=== PATIENT | female | born 1980 | race Caucasian/White ===

== ENCOUNTER 2023-09-23 22:21 | Emergency (ER) | payer OTHER, SELFPAY ==
[2023-09-23 22:29] VITALS: BP 158/98; PULSE 88; RESP 18; TEMP 37.5; O2SAT 98; BMI 41.9
--- NOTE | 2023-09-23 22:55 | PC.NURSE ---
No redness, bruising, swelling and skin at elbow intact, strong radial pulse to left wrist, Ice to site of complaint.
--- NOTE | 2023-09-23 22:57 | ED_ITS ---
HPI - Extremity Injury (Lower) General Chief Complaint: Extremity Injury, Lower Stated Complaint: FALL Injury Time Seen by Provider: 09/23/23 22:54 Source: patient Mode of arrival: walk-in History of Present Illness HPI Narrative: slipped on plastic at work and fell onto her right knee. Also mild injury to the left elbow. States only mild pain at the elbow and demonstrates use of the elbow without discomfort. Denies other injury. Related Data Allergies Allergy/AdvReac Type Severity Reaction Status Date / Time No Known Drug Allergies Allergy Verified 09/23/23 22:34 Review of Systems ROS Status of ROS 10 or more systems reviewed and unremark able except as noted in history and below Exam Constitutional Vital Signs, click to edit/add: Last Vital Signs Temp 99.5 F 09/23/23 22:29 Pulse 88 09/23/23 22:29 Resp 18 09/23/23 22:29 BP 158/98 H 09/23/23 22:29 Pulse Ox 98 09/23/23 22:29 O2 Del Method Room Air 09/23/23 22:29 Common normals: no apparent distress, average body habitus, oriented x3, no limitations, healthy appearing and alert HENIA Common normals: normocephalic and head/scalp atraumatic Respiratory Common normals: normal respiratory effort, no retractions and no use of accesso ry muscles GI Common normals: Normal to inspection, nondistended, normoactive bowel sounds present, soft to palpation and non-tender Extremity Other: mild tenderness right patella. not able to fully extend left elbow from old injury but otherwise able to use LUE without difficulty Neuro Common normals: oriented x3, CN's II-XII intact bilaterally, moves all extremities and no focal motor deficits Psych Appearance: grossly normal Course Vital Signs Vital signs: Vital Signs Temperature 99.5 F 09/23/23 22:29 Pulse Rate 88 09/23/23 22:29 Respiratory Rate 18 09/23/23 22:29 Blood Pressure 158/98 H 09/23/23 22:29 Pulse Oximetry 98 09/23/23 22:29 Oxygen Delivery Method Room Air 09/23/23 22:29 Temperature 99.5 F 09/23/23 22:29 Pulse Rate 88 09/23/23 22:29 Respiratory Rate 18 09/23/23 22:29 Blood Pressure 158/98 H 09/23/23 22:29 Pulse Oximetry 98 09/23/23 22:29 Oxygen Delivery Method Room Air 09/23/23 22:29 MDM - Extremity Injury (Lower) MDM Narrative Medical decision making narrative: patient presents after slip and fall injury at work. landed on her right knee. mild injury left elbow. xray right knee neg for fracture. Exam with evidence of mild knee contusion. Patient states she is not scheduled to return to work until 09/27/23. I suspect by then she should be able to return to work without restrictions. Discharged home with working diagnosis of right knee contusion Imaging Data Chest x-ray: Radiologist's impression: ITS Impressions Knee X-Ray 09/23/23 22:57 IMPRESSION: Negative. Electronically authenticated by: PIEDAD CALVO Date: 09/23/2023 23:47 Discharge Plan Discharge Chief Complaint: Extremity Injury, Lower Clinical Impression: Contusion of knee, right Patient Disposition: Home, Self-Care Instructions: Contusion in Adults (ED) Stand Alone Forms: Portal Instructions Referrals: Physician,Non-Staff, MD [Primary Care Provider] - 1 week
--- NOTE | 2023-09-23 22:57 | XR_ITS ---
The [address] [address] Patient Name: JAG SAUCEDO MRN: [id number] date: 1980 Sex: F Assigned Patient Location: ER Current Patient Location: ER Accession/Order Number: [id number] Exam Date: 09/23/2023 23:10 Report Date: 09/23/2023 23:47 At the request of: EDIN MESSINA Procedure: XR knee RT 3V EXAM: XR knee RT 3V HISTORY: The patient is a 43-year-old female, injury COMPARISON: None. FINDINGS: The right knee is radiographically negative with no evidence of fracture, dislocation, joint space narrowing, osteophytes, or other osseous or articular abnormalities. XR/XR knee RT 3V IMPRESSION: Negative. Electronically authenticated by: PIEDAD CALVO Date: 09/23/2023 23:47
--- NOTE | 2023-09-23 22:57 | PC.NURSE ---
No redness or swelling and skin intact to right knee, small bruise starting at site, pt able to bend injured knee and ice placed to right knee.
--- NOTE | 2023-09-24 00:52 | XR_ITS ---
The [address] [address] Patient Name: JAG SAUCEDO MRN: [id number] date: 1980 Sex: F Assigned Patient Location: ER Current Patient Location: ER Accession/Order Number: [id number] Exam Date: 09/24/2023 00:58 Report Date: 09/24/2023 02:00 At the request of: EDIN MESSINA Procedure: XR elbow LT min 3V Examination:XR elbow LT min 3V INDICATION:injury COMPARISON:None. TECHNIQUE:3 left elbow views are submitted. FINDINGS:There is some image degradation on this examination since patient is unable to fully extend her arm due to trauma and clinical status. There is a bony fragment with sharp edges on the lateral projection located along the distal posterior humerus which may represent an acute fracture arising from the olecranon there are other smoothly marginated osseous fragments located adjacent to the medial humeral condyle which may be sequela to old trauma given the smooth edges. A definitive radial head fracture cannot be appreciated. There is a large joint effusion on the lateral projection. XR/XR elbow LT min 3V IMPRESSION: There may be an acute fracture arising from the olecranon based on the lateral projection. Further evaluation with CT scan would be of benefit. Electronically authenticated by: PINA NELSON Date: 09/24/2023 02:00
[2023-09-24 01:48] VITALS: BP 162/94; PULSE 90; RESP 16; O2SAT 99
== END 2023-09-24 05:36 | disposition home or self-care (01) ==
PROVIDERS: Emergency Provider Internal Medicine
DX: S80.01XA Contusion of right knee, initial encounter (principal); M25.522 Pain in left elbow; W01.10XA Fall on same level from slipping, tripping and stumbling with subsequent striking against unspecified object, initial encounter
CPT/HCPCS: 73080; 73562; 99284

== ENCOUNTER 2023-09-28 10:31 | Outpatient (OUT) | payer SELFPAY ==
--- OUTSIDE RECORDS SUMMARY | 2023-09-28 10:37 | XMS_ITS | CCD ---
Author Name Unknown Address [address] [place] [address] [address] [place] [address] Organization [facility] Care Team Providers Care Drywall Finisher Name Role Phone TRI, DR HANK Horner Admitting Unavailable TRI, DR HANK Horner Attending Unavailable DR HANK BARTLETT Consulting Unavailable Problems Problem Classification Problem Date Documented Da te Episodic/Chronic E Codes: Fall (1 source) Fall (on) (from) unspecified stairs and steps, initial encounter; Translations: [FALL ON FROM UNS STAIRS STEPS INIT] Onset: 04-21-2022 Episodic Other injuries and conditions due to external causes (3 sources) Unspecified injury of right shoulder and upper arm, initial encounter; Translations: [UNS INJ RT SHOULDER UP ARM INITIAL] Onset: 04-20-2022 Episodic Sprains and strains (1 source) Strain of unspecified muscle, fascia and tendon at shoulder and upper arm level, right arm, initial encounter; Translations: [STRN UNS MSC F TND SHLDR UA RA INIT] Onset: 04-21-2022 Episodic Encounters Encounter Date Encounter Type Care Provider Facility Start: 04-20-2022 End: 04-20-[address] HANK BARTLETT Facility:[facility] Payers Date Payer Category Payer Unknown [id number] 1958 Self-pay [id number] Summary Purpose Family History No Family History Records Found Advance Directives No Advanced Directives Records Found Additional Source Comments INFORMATION SOURCE (unrecogn ized section and content) DATE CREATED AUTHOR 04/21/2022 [facility] FOR RECORDS PERTAINING TO PATIENTS WHO ARE OR HAVE BEEN ENROLLED IN A CHEMICAL DEPENDENCY/SUBSTANCEABUSE PROGRAM, SOME INFORMATION MAY BE OMITTED. This clinical summary was aggregated from multiple sources. Caution should be exercised in using it in the provision of clinical care. This summary normalizes information from multiple sources, and as a consequence, information in this document may materially change the coding, format and clinical context of patient data. In addition, data may be omitted in some cases. CLINICAL DECISIONS SHOULD BE BASED ON THE PRIMARY CLINICAL RECORDS. [facility]. provides no warranty or guarantee of the accuracy or completeness of information in this document.
--- NOTE | 2023-09-28 10:45 | CT_ITS ---
The [address] [address] Patient Name: JAG SAUCEDO MRN: [id number] date: 1980 Sex: F Assigned Patient Location: [facility] Current Patient Location: [facility] Accession/Order Number: [id number] Exam Date: 09/28/2023 10:50 Report Date: 09/28/2023 11:18 At the request of: JOSH COLVIN Procedure: CT elbow LT wo con EXAMINATION: CT elbow LT wo con HISTORY: Abnormal plain x-ray COMPARISON: 09/24/2023 elbow x-ray TECHNIQUE: Multi-planar CT images were created without IV contrast. Dose reduction techniques were achieved by using automated exposure control and/or adjustment of mA and/or kV according to patient size and/or use of iterative reconstruction technique. FINDINGS: BONES: Lucency is identified through the medial anterior coronoid process best seen on axial image 20 and 21 with the fracture fragment measuring 10.7 x 7.0 mm on axial image 21 and 12 mm on sagittal image #18. The fracture extends to the articular surface with no distraction or angulation. No additional fracture. No dislocation. Moderate degenerative changes with marginal osteophyte formation. SOFT TISSUES: Mild posterior soft tissue swelling EFFUSION: None visible. OTHER: Negative. CT/CT elbow LT wo con IMPRESSION: Subacute nondisplaced nonangulated 10.7 x 7.0 x 12 mm fracture along the anterior medial coronoid process of the proximal ulna. No significant bony bridging and bone formation is observed Electronically authenticated by: RUBÉN FERREIRA Date: 09/28/2023 11:18
== END 2023-09-28 10:32 | disposition home or self-care (01) ==
LOC: RAD 10:32
PROVIDERS: Visit Provider Nurse Practitioner Family
DX: M25.522 Pain in left elbow (principal); S52.045A Nondisplaced fracture of coronoid process of left ulna, initial encounter for closed fracture
CPT/HCPCS: 73200

== ENCOUNTER 2025-04-07 17:10 | Emergency (ER) | payer OTHER, SELFPAY ==
[2025-04-07 17:14] VITALS: BP 137/118; PULSE 115; TEMP 36.7; O2SAT 99; BMI 44.3
--- NOTE | 2025-04-07 17:20 | CT_ITS ---
The [address] [address] Patient Name: JAG SAUCEDO MRN: [id number] date: 1980 Sex: F Assigned Patient Location: ER Current Patient Location: [facility] Accession/Order Number: [id number] Exam Date: 04/07/2025 18:07 Report Date: 04/07/2025 18:10 At the request of: BHUMIKA BROWNING Procedure: CT abdomen pelvis w con CT ABDOMEN AND PELVIS WITH INTRAVENOUS CONTRAST: CLINICAL HISTORY: ruq pain COMPARISON: None TECHNIQUE: Spiral images were obtained through the abdomen and pelvis following the administration of intravenous contrast. This CT exam was performed using one or more following dose reduction techniques: Automated exposure control, adjustment of the mA and/or kV according to patient size, or use of iterative reconstruction technique. FINDINGS: Lung Bases: [Mild lung scarring.] Organs:CBD stent is in place. Diffuse intrahepatic bile duct dilatation. No enhancing liver lesion is present. Gallbladder spleen and adrenal glands appear unremarkable. Pancreas enhances homogeneously without measurable mass. No enhancing renal mass or hydronephrosis. Abdominal aorta appears normal in caliber.[ GI: Stomach is grossly unremarkable. Small bowel appears nondilated. Appendix is normal. No acute colonic abnormality.[ Pelvis:[Uterus and urinary bladder appears unremarkable. 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 Abd wall/Bones:Abdominal wall demonstrates no acute findings. Osseous structures demonstrate degenerative change[ CT/CT abdomen pelvis w con IMPRESSION: CBD stent is in place. There is mild intrahepatic bile duct dilatation noted. Correlation with LFTs is suggested. No definite acute intra-abdominal process is seen. Impression dictated by: Elie Herrera Jr., D.O. 04/07/2025 6:10 PM Dictation Location: [place] [address] Electronically authenticated by: [id number] Y Date: 04/07/2025 18:10
--- OUTSIDE RECORDS SUMMARY | 2025-04-07 17:23 | XMS_ITS | CCD ---
Author Organization [facility] Care Team Providers Care Meteorological Observer Name Role Phone DR HANK BARTLETT Admitting Unavailable TRI, DR HANK Horner Attending Unavailable TRI, DR HANK Horner Consulting Unavailable No, Pcp Primary Care Provider Unavailabl e NO, PCP Primary Care Unavailable ROGERS REEVES Referring Unavailable ROGERS REEVES Referring Unavailable IGLESIA, PCP Primary Care Unavailable DESEAN RONODN Referring Unavailable DESEAN RONDON Primary Care Unavailable DESEAN RONDON Referring Unavailable DESEAN RONDON Primary Care Unavailable Alcon RUG RENOVATOR-HAY CHOPPERDesean Primary Care Provid er Alcon RUG RENOVATOR-Desean HENSON Primary Care Provid er DESEAN RONDON Attending Unavailable DESEAN RONDON Referring Unavailable DESEAN RONDON Primary Care Unavailable AMY WALTER Attending Unavailable DESEAN RONDON Referring Unavailable DESEAN RONDON Primary Care Unavailable Medications Current Medications Medication Drug Class(es) Dates Sig (Normalized) Sig (Original) 250 ml glucose 50 mg/ml / sodium chloride 4.5 mg/ml injection (1 source) Start: 01-13-2013 Dextrose-Sodium Chloride (DEXTROSE 5 % AND 0.45 % NACL) 5-0.45 % infusion Infuse 75 mLs intravenously continuous. 1000 mL 0 01/13/2013 Active levothyroxine sodium 0.025 mg oral tablet (6 sources) l-Thyroxine Start: 02-23-2024 End: 08-13-2024 take 1 tablet by mouth in the morning levothyroxine (SYNTHROID, LEVOTHROID) 25 MCG tablet Indications: Acquired hypothyroidism TAKE 1 TABLET BY MOUTH IN THE MORNING 90 tablet 1 08/13/2024 Active lisinopril 10 mg oral tablet (1 source) Angiotensin Converting Enzyme Inhibitor Start: 03-21-2025 take 1 tablet by mouth in the morning lisinopriL (PRINIVIL,ZESTRIL) 10 mg tablet Take 1 tablet (10 mg total) by mouth in the morning. 30 tablet 1 03/21/2025 Active 1 ml morphine sulfate 2 mg/ml injection (1 source) Opioid Agonist Start: 01-13-2013 inject 1 mL intravenously every four hours as needed for pain morphine 2 MG/ML injection Infuse 1 mL intravenously every 4 hours as needed for Pain. 1 mL 0 01/13/2013 Active 2 ml ondansetron 2 mg/ml injection (1 source) Serotonin-3 Receptor Antagonist Start: 01-13-2013 inject 4 mL intravenously every six hours ondansetron (ZOFRAN) 4 MG/2ML injection Infuse 4 mLs intravenously every 6 hours. 15 mL 0 01/13/2013 Active pantoprazole 40 mg injection (1 source) Proton Pump Inhibitor Start: 01-13-2013 inject 40 mg intravenously once daily pantoprazole (PROTONIX) 40 MG injection Infuse 40 mg intravenously daily. 40 mg 0 01/13/2013 Active traZODone hydrochloride 50 mg oral tablet (4 sources) Serotonin Reuptake Inhibitor Start: 07-05-2024 take 1 tablet by mouth once daily traZODone (DESYREL) 50 mg tablet Indications: Insomnia, unspecified type Take 1 tablet (50 mg total) by mouth nightly. 30 tablet 1 07/05/2024 Active Problems Active Problems Problem Classification Problem Date Documented Da te Episodic/Chronic Diabetes mellitus without complication (2 sources) Impaired fasting glycemia; Translations: [Impaired fasting glucose] Onset: 03-21-2025 03-21-2025 Episodic E Codes: Fall (1 source) Fall (on) (from) unspecified stairs and steps, initial encounter; Translations: [FALL ON FROM UNS STAIRS STEPS INIT] Onset: 04-21-2022 Episodic Essential hypertension (2 sources) Essential hypertension; Translations: [Essential (primary) hypertension] Onset: 03-21-2025 03-21-2025 Chronic Other injuries and conditions due to external causes (3 sources) Unspecified injury of right shoulder and upper arm, initial encounter; Translations: [UNS INJ RT SHOULDER UP ARM INITIAL] Onset: 04-20-2022 Episodic Other non-traumatic joint disorders (1 source) Pain in elbow; Translations: [Pain in left elbow] 10-14-2023 Episodic Other non-traumatic joint disorders (3 sources) Pain in left elbow; Translations: [Pain in left elbow] Onset: 10-14-2023 Episodic Other nutritional; endocrine; and metabolic disorders (1 source) Severe obesity; Translations: [Class 3 severe obesity due to excess calories with serious comorbidity and body mass index (BMI) of 45.0 to 49.9 in adult ([facility])] 03-21-2025 Chronic Residual codes; unclassified (2 sources) Insomnia; Translations: [Insomnia, unspecified] 07-05-2024 Episodic Sprains and strains (1 source) Strain of unspecified muscle, fascia and tendon at shoulder and upper arm level, right arm, initial encounter; Translations: [STRN UNS MSC F TND SHLDR UA RA INIT] Onset: 04-21-2022 Episodic Thyroid disorders (7 sources) Hypothyroidism, unspecified; Translations: [Acquired hypothyroidism] Onset: 07-05-2024 02-23-2024 Chronic Unclassified (1 source) well person Onset: 03-21-2025 Past or Other Problems Problem Classification Problem Date Documented Date Episodic/Chronic Abdominal pain (1 source) Abdominal pain; Translations: [Unspecified abdominal pain] Onset: 01-12-2013 Episodic Administrative/social admission (1 source) Referral statuses; Translations: [Persons encountering health services in other specified circumstances] 02-23-2024 Episodic Biliary tract disease (1 source) Common bile duct calculus; Translations: [Calculus of bile duct without cholangitis or cholecystitis without obstruction] Onset: 01-12-2013 Episodic Mood disorders (6 sources) Mood disorders Onset: 02-23-2024 Resolved: 03-21-2025 02-23-2024 Other screening for suspected conditions (not mental disorders or infectious disease) (2 sources) Abnormal liver function; Translations: [Abnormal results of liver function studies] Onset: 01-12-2013 02-14-2024 Episodic Residual codes; unclassified (1 source) Insomnia, unspecified; Translations: [Insomnia, unspecified] Onset: 07-05-2024 Episodic Unclassified (6 sources) Onset: 02-23-2024 Resolved: 03-21-2025 02-23-2024 Results Test Name Value Interpretation Reference Range Facil ity CBC WITH AUTO DIFFERENTIALon 03-21-2025 BASOPHILS ABSOLUTE COUNT (10*3/UL) BY AUTOMATED COUNT 0.1 10*3/uL Normal 0.0-0.2 [facility] Comment on above: Performed By: #### C BCA #### [facility] ([facility]) [address] [place] [address] VIR BASOPHILS RELATIVE PERCENT BY AUTOMATED COUNT 0.8 % Normal [facility] Comment on above: Performed By: #### C BCA #### [facility] ([facility]) [address] [place] [address] VIR CELLAVISION DIFFERENTIAL TYPE AUTOMATED DIFFERENTIAL Normal [facility] Comment on above: Performed By: #### C BCA #### [facility] ([facility]) [address] [place] [address] VIR Eosinophils (Bld) [#/Vol] 0.2 10*3/uL Normal 0.0-0.4 [facility] Comment on above: Performed By: #### C BCA #### [facility] ([facility]) [address] [place] [address] VIR EOSINOPHILS RELATIVE PERCENT BY AUTOMATED COUNT 3.5 % Normal [facility] Comment on above: Performed By: #### C BCA #### [facility] ([facility]) [address] [place] [address] VIR Erythrocyte distribution width (RBC) [Ratio] 15.4 % High 11.5-15 [facility] Comment on above: Performed By: #### C BCA #### [facility] ([facility]) [address] [place] [address] VIR Hematocrit (Bld) [Volume fraction] 45.0 % Normal 35-47 [facility] Comment on above: Performed By: #### C BCA #### [facility] ([facility]) [address] [place] [address] VIR Hemoglobin (Bld) [Mass/Vol] 15.0 g/dL Normal 11.7-15.5 [facility] Comment on above: Performed By: #### C BCA #### [facility] ([facility]) [address] [place] [address] VIR LYMPHOCYTES ABSOLUTE COUNT (10*3/UL) BY AUTOMATED COUNT 1.8 10*3/uL Normal 1.0-3.5 [facility] Comment on above: Performed By: #### C BCA #### [facility] ([facility]) [address] [place] [address] VIR LYMPHOCYTES RELATIVE PERCENT BY AUTOMATED COUNT 25.3 % Normal [facility] Comment on above: Performed By: #### C BCA #### [facility] ([facility]) [address] [place] [address] VIR MCH (RBC) [Entitic mass] 29.1 pg Normal 27-34 [facility] Comment on above: Performed By: #### C BCA #### [facility] ([facility]) [address] [place] [address] VIR MCHC (RBC) [Mass/Vol] 33.4 g/dL Normal 32-36 [facility] Comment on above: Performed By: #### C BCA #### [facility] ([facility]) [address] [place] [address] VIR MCV (RBC) [Entitic vol] 87 fL Normal 80-100 [facility] Comment on above: Performed By: #### C BCA #### [facility] ([facility]) [address] [place] [address] VIR MONOCYTES ABSOLUTE COUNT (10*3/UL) BY AUTOMATED COUNT 0.8 10*3/uL Normal 0.0-0.9 [facility] Comment on above: Performed By: #### C BCA #### [facility] ([facility]) [address] [place] [address] VIR MONOCYTES RELATIVE PERCENT BY AUTOMATED COUNT 10.6 % Normal [facility] Comment on above: Performed By: #### C BCA #### [facility] ([facility]) [address] [place] [address] VIR NEUTROPHILS ABSOLUTE COUNT BY AUTOMATED COUNT 4.2 10*3/uL Normal 1.5-6.6 [facility] Comment on above: Performed By: #### C BCA #### [facility] ([facility]) [address] [place] [address] VIR NEUTROPHILS RELATIVE PERCENT BY AUTOMATED COUNT 59.8 % Normal [facility] Comment on above: Performed By: #### C BCA #### [facility] ([facility]) [address] [place] [address] VIR Platelet mean volume (Bld) [Entitic vol] 8.2 fL Normal 7-12 [facility] Comment on above: Performed By: #### C BCA #### [facility] ([facility]) [address] [place] [address] VIR Platelets (Bld) [#/Vol] 239 10*3/uL Normal 150-450 [facility] Comment on above: Performed By: #### C BCA #### [facility] ([facility]) [address] [place] [address] VIR RBC COUNT 5.16 X10E12/L Normal 3.8-5.2 [facility] Comment on above: Performed By: #### C BCA #### [facility] ([facility]) [address] [place] [address] VIR WBC (Bld) [#/Vol] 7.1 10*3/uL Normal 4-11 [facility] Comment on above: Performed By: #### C BCA #### [facility] ([facility]) [address] [place] [address] VIR COMPREHENSIVE METABOLIC PANE Anshu 03-21-2025 Albumin [Mass/Vol] 4.4 g/dL Normal 3.2-5.3 [facility] Comment on above: Performed By: #### C MP #### [facility] ([facility]) [address] [place] [address] VIR ALP [Catalytic activity/Vol] 88 U/L Normal 39-130 [facility] Comment on above: Performed By: #### C MP #### [facility] ([facility]) [address] [place] [address] VIR ALT [Catalytic activity/Vol] 31 U/L Normal <=31 [facility] Comment on above: Performed By: #### C MP #### [facility] ([facility]) [address] [place] [address] VIR Anion gap [Moles/Vol] 10 mmol/L Normal 5-15 [facility] Comment on above: Performed By: #### C MP #### [facility] ([facility]) [address] [place] [address] VIR AST [Catalytic activity/Vol] 31 U/L Normal <=41 [facility] Comment on above: Performed By: #### C MP #### [facility] ([facility]) [address] [place] [address] VIR Bilirubin [Mass/Vol] 0.5 mg/dL Normal 0.3-1.2 [facility] Comment on above: Performed By: #### C MP #### [facility] ([facility]) [address] [place] [address] VIR Calcium [Mass/Vol] 9.0 mg/dL Normal 8.5-10.5 [facility] Comment on above: Performed By: #### C MP #### [facility] ([facility]) [address] [place] [address] VIR Chloride [Moles/Vol] 106 mmol/L Normal 98-109 [facility] Comment on above: Performed By: #### C MP #### [facility] ([facility]) [address] [place] [address] VIR CO2 [Moles/Vol] 25 mmol/L Normal 22-32 [facility] Comment on above: Performed By: #### C MP #### [facility] ([facility]) [address] [place] [address] VIR Creatinine [Mass/Vol] 0.63 mg/dL Normal 0.40-1.00 [facility] Comment on above: Result Comment: METH OD TRACEABLE TO IDMS STANDARD Performed By: #### C MP #### [facility] ([facility]) [address] [place] [address] VIR EGFR (CKD-EPI) NON-RACE DEPENDENT >^90 Normal >=60 [facility] Comment on above: Result Comment: Repo rted eGFR is based on the CKD-EPI 2020 equation that does not use a race coefficient. Performed By: #### C MP #### [facility] ([facility]) [address] [place] [address] VIR Glucose [Mass/Vol] 92 mg/dL Normal 65-99 [facility] Comment on above: Performed By: #### C MP #### [facility] ([facility]) [address] [place] [address] VIR Potassium [Moles/Vol] 4.1 mmol/L Normal 3.5-5.0 [facility] Comment on above: Performed By: #### C MP #### [facility] ([facility]) [address] [place] [address] VIR Protein [Mass/Vol] 7.4 g/dL Normal 6.0-8.0 [facility] Comment on above: Performed By: #### C MP #### [facility] ([facility]) [address] [place] [address] VIR Sodium [Moles/Vol] 141 mmol/L Normal 134-146 [facility] Comment on above: Performed By: #### C MP #### [facility] ([facility]) [address] [place] [address] VIR Urea nitrogen [Mass/Vol] 11 mg/dL Normal 5-23 [facility] Comment on above: Performed By: #### C MP #### [facility] ([facility]) [address] [place] [address] VIR HEMOGLOBIN A1Con 03-21-2025 Glucose [Mass/Vol] 117 mg/dL Normal [facility] Comment on above: Performed By: #### H A1C #### [facility] ([facility]) [address] [place] [address] VIR HbA1c (Bld) [Mass fraction] 5.7 % High 4.4-5.6 [facility] Comment on above: Result Comment: ADA Guidelines Result HgbA1c Normal : less than 5.7 % Prediabetes : 5.7 % to 6.4 % Diabetes : > 6.4 % Use with caution in patients with abnormal hemoglobin variants as the half-life of red blood cells and in vivo glycation rates are affected. Performed By: #### H A1C #### [facility] ([facility]) [address] [place] [address] VIR LIPID PROFILEon 03-21-2025 Cholesterol [Mass/Vol] 96 mg/dL Low 150-200 [facility] Comment on above: Performed By: #### L IPR #### [facility] ([facility]) [address] [place] [address] VIR Cholesterol in HDL [Mass/Vol] 51 mg/dL Normal >39 [facility] Comment on above: Result Comment: HDL <40 mg/dL - High Risk HDL > or = 40mg/dL- Desirable HDL >60 mg/dL - Negative Risk Performed By: #### L IPR #### [facility] ([facility]) [address] [place] [address] VIR Cholesterol in LDL [Mass/Vol] 31 mg/dL Normal <130 [facility] Comment on above: Result Comment: LDL <100 mg/dL - Desirable LDL >160 mg/dL - High Risk Performed By: #### L IPR #### [facility] ([facility]) [address] [place] [address] VIR CHOLESTEROL:HDL 1.9 Normal 1.0-5.0 [facility] Comment on above: Performed By: #### L IPR #### [facility] ([facility]) [address] [place] [address] VIR Triglyceride [Mass/Vol] 68 mg/dL Normal 27-150 [facility] Comment on above: Performed By: #### L IPR #### [facility] ([facility]) [address] [place] [address] VIR VERY LOW LIPOPROTEIN 14 mg/dL Normal 0-30 [facility] Comment on above: Performed By: #### L IPR #### [facility] ([facility]) [address] [place] [address] VIR THYROID PROFILE INCLUDES TSH FT4on 03-21-2025 Free T4 [Mass/Vol] 0.84 ng/dL Normal 0.61-1.60 [facility] Comment on above: Performed By: #### T HYR #### [facility] ([facility]) [address] [place] [address] VIR TSH 3.75 uIU/mL Normal 0.49-4.67 [facility] Comment on above: Performed By: #### T HYR #### [facility] ([facility]) [address] [place] [address] VIR TSH Qnon 07-05-2024 TSH 2.47 uIU/mL Normal 0.49-4.67 [facility] Comment on above: Performed By: #### 3 016-3 #### [facility] ([id number]) [address] [place] [address] CBC AND AUTO DIFFon 02-14-20 24 ABSOLUTE BASOPHIL 0.0 X10E9/L Normal 0.0-0.2 [facility] Comment on above: Performed By: #### C BCA, HA1C, CMP, 34795-6, 3015-3 #### [facility] ([id number]) [address] [place] [address] ABSOLUTE NEUTROPHIL 7.0 X10E9/L High 1.5-6.6 [facility] Comment on above: Performed By: #### C BCA, HA1C, CMP, 87737-0, 3015-3 #### [facility] ([id number]) [address] [place] [address] Basophils/100 WBC (Bld) 0.4 % Normal [facility] Comment on above: Performed By: #### C BCA, HA1C, CMP, , 3015- #### [facility] ([id number]) [address] [place] [address] Eosinophils (Bld) [#/Vol] 0.3 10*3/uL Normal 0.0-0.4 [facility] Comment on above: Performed By: #### C BCA, HA1C, CMP, , 3015- #### [facility] ([id number]) [address] [place] [address] Eosinophils/100 WBC (Bld) 2.8 % Normal [facility] Comment on above: Performed By: #### C BCA, HA1C, CMP, , 3015- #### [facility] ([id number]) [address] [place] [address] Erythrocyte distribution width (RBC) [Ratio] 15.1 % High 11.5-15.0 [facility] Comment on above: Performed By: #### C BCA, HA1C, CMP, , 3015- #### [facility] ([id number]) [address] [place] [address] Hematocrit (Bld) [Volume fraction] 44.8 % Normal 35-[address] [facility] Comment on above: Performed By: #### C BCA, HA1C, CMP, 76746-3, 3015- #### [facility] ([id number]) [address] [place] [address] Hemoglobin (Bld) [Mass/Vol] 15.3 g/dL Normal 11.7-15.5 [facility] Comment on above: Performed By: #### C BCA, HA1C, CMP, 85156-0, 3015-3 #### [facility] ([id number]) [address] [place] [address] Lymphocytes (Bld) [#/Vol] 1.7 10*3/uL Normal 1.0-3.5 [facility] Comment on above: Performed By: #### C BCA, HA1C, CMP, 34313-6, 3015- #### [facility] ([id number]) [address] [place] [address] Lymphocytes/100 WBC (Bld) 17.2 % Normal [facility] Comment on above: Performed By: #### C BCA, HA1C, CMP, 21107-8, 3015- #### [facility] ([id number]) [address] [place] [address] MCH (RBC) [Entitic mass] 29.5 pg Normal 27-34 [facility] Comment on above: Performed By: #### C BCA, HA1C, CMP, 52137-1, 3015- #### [facility] ([id number]) [address] [place] [address] MCHC (RBC) [Mass/Vol] 34.1 g/dL Normal 32-36 [facility] Comment on above: Performed By: #### C BCA, HA1C, CMP, 38578-9, 3015- #### [facility] ([id number]) [address] [place] [address] MCV (RBC) [Entitic vol] 87 fL Normal 80-100 [facility] Comment on above: Performed By: #### C BCA, HA1C, CMP, 74324-0, 3015- #### [facility] ([id number]) [address] [place] [address] Monocytes (Bld) [#/Vol] 0.7 10*3/uL Normal 0-0.9 [facility] Comment on above: Performed By: #### C BCA, HA1C, CMP, 57658-3, 3015- #### [facility] ([id number]) [address] [place] [address] Monocytes/100 WBC (Bld) 7.0 % Normal [facility] Comment on above: Performed By: #### C BCA, HA1C, CMP, 17704-3, 3015-11 #### [facility] ([id number]) [address] [place] [address] Neutrophils/100 WBC (Bld) 72.6 % Normal [facility] Comment on above: Performed By: #### C BCA, HA1C, CMP, 45674-8, 3015-11 #### [facility] ([id number]) [address] [place] [address] Platelet mean volume (Bld) [Entitic vol] 8.6 fL Normal 7-12 [facility] Comment on above: Performed By: #### C BCA, HA1C, CMP, 21197-1, 3015- #### [facility] ([id number]) [address] [place] [address] Platelets (Bld) [#/Vol] 268 10*3/uL Normal 150-450 [facility] Comment on above: Performed By: #### C BCA, HA1C, CMP, 04357-7, 3015- #### [facility] ([id number]) [address] [place] [address] RBC COUNT 5.18 X10E12/L Normal 3.80-5.20 [facility] Comment on above: Performed By: #### C BCA, HA1C, CMP, 24633-7, 3016-3 #### [facility] ([id number]) [address] [place] [address] WBC (Bld) [#/Vol] 9.6 10*3/uL Normal 4.0-11.0 [facility] Comment on above: Performed By: #### C BCA, HA1C, CMP, 38231-6, 3016-3 #### [facility] ([id number]) [address] [place] [address] CBC auto differentialon -0 Basophils (Bld) [#/Vol] 0.0 10*3/uL [facility] Basophils/100 WBC (Bld) 0.4 % [facility] Eosinophils (Bld) [#/Vol] 0.3 10*3/uL [facility] Eosinophils/100 WBC (Bld) 2.8 % [facility] Erythrocyte distribution width (RBC) [Ratio] 15.1 % High 11.5 - 15.0 % [facility] Hematocrit (Bld) [Volume fraction] 44.8 % 35 - 47 % [facility] Hemoglobin (Bld) [Mass/Vol] 15.3 g/dL 11.7 - 15.5 g/dL [facility] Interpretation and review of laboratory results Abnormal [facility] Lymphocytes (Bld) [#/Vol] 1.7 10*3/uL [facility] Lymphocytes/100 WBC (Bld) 17.2 % [facility] MCH (RBC) [Entitic mass] 29.5 pg 27 - 34 pg [facility] MCHC (RBC) [Mass/Vol] 34.1 g/dL 32 - 36 g/dL [facility] [facility] MCV (RBC) [Entitic vol] 87 fL 80 - 100 fL [facility] Monocytes (Bld) [#/Vol] 0.7 10*3/uL [facility] Monocytes/100 WBC (Bld) 7.0 % [facility] Neutrophils (Bld) [#/Vol] 7.0 10*3/uL High [facility] Neutrophils/100 WBC (Bld) 72.6 % [facility] Platelet mean volume (Bld) [Entitic vol] 8.6 fL 7 - 12 fL [facility] Platelets (Bld) [#/Vol] 268 10*3/uL [facility] RBC (Bld) [#/Vol] 5.18 10*6/uL [facility] WBC corrected for nucl RBC Auto (Bld) [#/Vol] 9.6 [facility] COMPREHENSIVE METABOLIC PANE Anshu 02-14-2024 Albumin [Mass/Vol] 4.3 g/dL Normal 3.2-5.3 [facility] Comment on above: Performed By: #### C BCA, HA1C, CMP, 16243-0, 6-3 #### [facility] ([id number]) [address], [address] [place] [address] ALP [Catalytic activity/Vol] 114 U/L Normal 39-130 [facility] Comment on above: Performed By: #### C BCA, HA1C, CMP, 35989-9, 6-3 #### [facility] ([id number]) [address], [address] [place] [address] ALT [Catalytic activity/Vol] 33 U/L High 0-31 [facility] Comment on above: Performed By: #### C BCA, HA1C, CMP, 07295-1, 3015-3 #### [facility] ([id number]) [address], [address] [place] [address] Anion gap [Moles/Vol] 10 mmol/L Normal 5-15 [facility] Comment on above: Performed By: #### C BCA, HA1C, CMP, 63486-6, 6-3 #### [facility] ([id number]) [address], [address] [place] [address] AST [Catalytic activity/Vol] 28 U/L Normal 0-41 [facility] Comment on above: Performed By: #### C BCA, HA1C, CMP, 85906-5, 3015-3 #### [facility] ([id number]) [address], [address] [place] [address] Bilirubin [Mass/Vol] 0.8 mg/dL Normal 0.3-1.2 [facility] Comment on above: Performed By: #### C BCA, HA1C, CMP, 39456-4, 3015-3 #### [facility] ([id number]) [address], [address] [place] [address] Calcium [Mass/Vol] 9.2 mg/dL Normal 8.5-10.5 [facility] Comment on above: Performed By: #### C BCA, HA1C, CMP, 15732-4, 3015-3 #### [facility] ([id number]) [address], [address] [place] [address] Chloride [Moles/Vol] 102 mmol/L Normal 98-109 [facility] Comment on above: Performed By: #### C BCA, HA1C, CMP, 62634-4, 3015-3 #### [facility] ([id number]) [address], [address] [place] [address] CO2 [Moles/Vol] 28 mmol/L Normal 22-32 [facility] Comment on above: Performed By: #### C BCA, HA1C, CMP, 93082-4, 3015-3 #### [facility] ([id number]) [address], [address] [place] [address] Creatinine [Mass/Vol] 0.59 mg/dL Normal 0.40-1.00 [facility] Comment on above: Result Comment: METH OD TRACEABLE TO IDMS STANDARD Performed By: #### C BCA, HA1C, CMP, 08092-0, 3015-3 #### [facility] ([id number]) [address] [address] [place] [address] eGFR (CKD-EPI) NON-RACE DEPENDENT >90 Normal >59 [facility] Comment on above: Result Comment: Reported eGFR is based on the CKD-EPI 2020 equation that does not use a race coefficient. Performed By: #### C BCA, HA1C, CMP, 74605-5, 3015-3 #### [facility] ([id number]) [address], [address] [place] [address] Glucose [Mass/Vol] 109 mg/dL High 65-99 [facility] Comment on above: Performed By: #### C BCA, HA1C, CMP, 94180-5, 3015-3 #### [facility] ([id number]) [address], [address] [place] [address] Potassium [Moles/Vol] 3.6 mmol/L Normal 3.5-5.0 [facility] Comment on above: Performed By: #### C BCA, HA1C, CMP, 80079-3, 3015- #### [facility] ([id number]) [address] [address] [place] [address] Protein [Mass/Vol] 7.9 g/dL Normal 6.0-8.0 [facility] Comment on above: Performed By: #### C BCA, HA1C, CMP, 18665-4, 3015- #### [facility] ([id number]) [address] [address] [place] [address] Sodium [Moles/Vol] 140 mmol/L Normal 134-146 [facility] Comment on above: Performed By: #### C BCA, HA1C, CMP, 01405-6, 6-3 #### [facility] ([id number]) [address], [address] [place] [address] Urea nitrogen [Mass/Vol] 8 mg/dL Normal 5-23 [facility] Comment on above: Performed By: #### C BCA, HA1C, CMP, 18616-6, 3016-3 #### [facility] ([id number]) [address], [address] [place] [address] Comprehensive metabolic pane anshu 02-14-2024 Albumin [Mass/Vol] 4.3 g/dL 3.2 - 5.3 g/dL [facility] ALP [Catalytic activity/Vol] 114 U/L 39 - 130 U/L [facility] ALT No additional P-5'-P [Catalytic activity/Vol] 33 U/L High 0 - 31 U/L [facility] Anion gap [Moles/Vol] 10 mmol/L 5 - 15 mmol/L [facility] AST [Catalytic activity/Vol] 28 U/L 0 - 41 U/L [facility] Bilirubin [Mass/Vol] 0.8 mg/dL 0.3 - 1.2 mg/dL [facility] Calcium [Mass/Vol] 9.2 mg/dL 8.5 - 10. 5 mg/dL [facility] Chloride [Moles/Vol] 102 mmol/L 98 - 109 mmol/L [facility] CO2 [Moles/Vol] 28 mmol/L 22 - 32 mmol/L [facility] Creatinine [Mass/Vol] 0.59 mg/dL 0.40 - 1.00 mg/dL [facility] Comment on above: METHOD TRACEABLE TO IDND STANDARD eGFR (CKD-EPI)non-race dependent - PINF [facility] Comment on above: Reported eGFR is based on the CKD-EPI 2020 equation that does not use a race coefficient. Glucose [Mass/Vol] 109 mg/dL High 65 - 99 mg/dL [facility] Interpretation and review of laboratory results Abnormal [facility] Potassium [Moles/Vol] 3.6 mmol/L 3.5 - 5.0 mmol/L [facility] Protein [Mass/Vol] 7.9 g/dL 6.0 - 8.0 g/dL [facility] Sodium [Moles/Vol] 140 mmol/L 134 - 146 mmol/L [facility] Urea nitrogen [Mass/Vol] 8 mg/dL 5 - 23 mg/dL [facility] HGB A1C (GLYCO-HGB)on 2023 Glucose [Mass/Vol] 111 mg/dL Normal [facility] Comment on above: Performed By: #### C MARNI ROSAS, KATELYN, 16239-6, 3016-3 #### [facility] ([id number]) [address] [place] [address], [address] [place] [address] HbA1c (Bld) [Mass fraction] 5.5 % Normal 4.4-5.6 [facility] Comment on above: Result Comment: NOTE ADA Guidelines Result HgbA1c Normal : less than 5.7 % Prediabetes : 5.7 % to 6.4 % Diabetes : > 6.4 % Use with caution in patients with abnormal hemoglobin variants as the half-life of red blood cells and in vivo glycation rates are affected. Performed By: #### C MARNI ROSAS, KATELYN, 60829-4, 3016-3 #### [facility] ([id number]) [address] [place] [address], [address] [place] [address] Hemoglobin A1con 02-14-2024 Average glucose Estimated from glycated hemoglobin (Bld) [Mass/Vol] 111 mg/dL [facility] HbA1c (Bld) [Mass fraction] 5.5 % 4.4 - 5.6 % [facility] Comment on above: NOTE ADA Guidelines Result HgbA1c Normal : less than 5.7 % Prediabetes : 5.7 % to 6.4 % Diabetes : > 6.4 % Use with caution in patients with abnormal hemoglobin variants as the half-life of red blood cells and in vivo glycation rates are affected. [facility] Lipid 1996 panelon 4 Cholesterol [Mass/Vol] 111 mg/dL Low 150-200 [facility] Comment on above: Performed By: #### C RALPH, HAJovanni, CMP, 18729-1, 3015- #### [facility] ([id number]) [address], [address] [place] [address] Cholesterol in HDL [Mass/Vol] 62 mg/dL Normal >39 [facility] Comment on above: Result Comment: HDL <40 mg/dL - High Risk HDL > or = 40mg/dL- Desirable HDL >60 mg/dL - Negative Risk Performed By: #### C RALPH, HA1C, CMP, 87846-6, 3015-11 #### [facility] ([id number]) [address], [address] [place] [address] Cholesterol in LDL [Mass/Vol] 39 mg/dL Normal <130 [facility] Comment on above: Result Comment: LDL <100 mg/dL - Desirable LDL >160 mg/dL - High Risk Performed By: #### C RALPH, HA1C, CMP, 36148-9, 3015- #### [facility] ([id number]) [address], [address] [place] [address] Cholesterol in VLDL [Mass/Vol] 10 mg/dL Normal 0-30 [facility] Comment on above: Performed By: #### C RALPH, HA1C, CMP, 27759-2, 3015- #### [facility] ([id number]) [address], [address] [place] [address] CHOLESTEROL:HDL 1.8 Normal 1.0-5.0 [facility] Comment on above: Performed By: #### C BCA, HA1C, CMP, 88252-6, 3016-3 #### [facility] ([id number]) [address], [address] [place] [address] Triglyceride [Mass/Vol] 51 mg/dL Normal 27-150 [facility] Comment on above: Performed By: #### C BCA, HA1C, CMP, 63077-5, 3016-3 #### [facility] ([id number]) [address], [address] [place] [address] TSHon 02-14-2024 TSH Qn 5.04 m[IU]/L High [facility] TSH Qnon 02-14-2024 Interpretation and review of laboratory results Abnormal [facility] TSH 5.04 uIU/mL High 0.49-4.67 [facility] Comment on above: Performed By: #### C BCA, HA1C, CMP, 10654-8, 3016-3 #### [facility] ([id number]) [address], [address] [place] [address] XR ELBOW LEFT (MIN 3 VIEWS)o n 10-14-2023 XR ELBOW LEFT (MIN 3 VIEWS) EXAM: XR ELBOW LEFT (MIN 3 VIEWS) HISTORY: Left elbow pain COMPARISON: None. IMPRESSION: FINDINGS/ IMPRESSION: Evidence of remote medial epicondylitis. There is moderate degeneration. No acute fracture or dislocation. Interpreted by: Zahra Francis DO Signed by: Zahra Francis DO 10/14/23 Final result Normal [facility] XR Elbow - left 3 Viewson FINDINGS/ IMPRESSION: Evidence of remote medial epicondylitis. There is moderate degeneration. No acute fracture or dislocation. [facility] EXAM: XR ELBOW LEFT (MIN 3 VIEWS) HISTORY: Left elbow pain COMPARISON: None. [facility] Zahra Francis DO - 10/14/2023 EXAM: XR ELBOW LEFT (MIN 3 VIEWS) HISTORY: Left elbow pain COMPARISON: None. IMPRESSION: FINDINGS/ IMPRESSION: Evidence of remote medial epicondylitis. There is moderate degeneration. No acute fracture or dislocation. [facility] Radiology Study observation (narrative) [facility] XR Elbow - left 3 ViewsOrder ed By: Zahra Francis on 10-14-2023 [facility] Work Phone: Vital Signs Date Time Vital Sign Value Performing Clinician Facility 03-21-2025 12:37-0400 Body height 157.5 cm Amy Ryan RUG RENOVATOR-[employer] Work Phone: [facility] 03-21-2025 12:37-0400 Body mass index (BMI) [Ratio] 45.38 kg/m2 Amy Ryan RUG RENOVATOR-[employer] Work Phone: [facility] 03-21-2025 12:37-0400 Body temperature 97.81 [degF] Amy Ryan RUG RENOVATOR-[employer] Work Phone: [facility] 03-21-2025 12:37-0400 Body weight 112.58 kg Amy Ryan RUG RENOVATOR-[employer] Work Phone: [facility] 03-21-2025 12:37-0400 Diastolic blood pressure 88 mm[Hg] Amy Ryan RUG RENOVATOR-[employer] Work Phone: [facility] 03-21-2025 12:37-0400 Heart rate 80 /min Amy Ryan RUG RENOVATOR-[employer] Work Phone: [facility] 03-21-2025 12:37-0400 Respiratory rate 18 /min Amykaushal Walter RUG RENOVATOR-[employer] Work Phone: [facility] 03-21-2025 12:37-0400 SaO2% (BldA) [Mass fraction] 97 % Amy Ryan RUG RENOVATOR-[employer] Work Phone: [facility] 03-21-2025 12:37-0400 Systolic blood pressure 138 mm[Hg] Amy Ryan RUG RENOVATOR-[employer] Work Phone: [facility] 07-05-2024 13:23-0400 Body height 157.5 cm Desean Rondon APRN-HAY CHOPPER Work Phone: [facility] 07-05-2024 13:23-0400 Body mass index (BMI) [Ratio] 48.03 kg/m2 Desean Rondon APRN-HAY CHOPPER Work Phone: [facility] 07-05-2024 13:23-0400 Body temperature 98.1 [degF] Desean Rondon APRN-[employer]AY [employer]PER Work Phone: [facility] 07-05-2024 13:23-0400 Body weight 119.11 kg Desean Rondon APRN-[employer]AY [employer]PER Work Phone: [facility] 07-05-2024 13:23-0400 Diastolic blood pressure 72 mm[Hg] Desean Rondon APRN-HAY CH[employer]PER Work Phone: [facility] 07-05-2024 13:23-0400 Heart rate 90 /min Desean Rondon APRN-[employer]PER Work Phone: [facility] 07-05-2024 13:23-0400 Respiratory rate 18 /min Desean Rondon APRN-[employer]PER Work Phone: [facility] 07-05-2024 13:23-0400 SaO2% (BldA) [Mass fraction] 98 % Desean Rondon APRN-[employer]AY [employer]PER Work Phone: [facility] 07-05-2024 13:23-0400 Systolic blood pressure 138 mm[Hg] Desean Rondon APRN-HAY CHOPPER Work Phone: [facility] 02-23-2024 10:33-0400 Body height 157.5 cm Desean Rondon APRN-[employer]PER Work Phone: [facility] 02-23-2024 10:33-0400 Body mass index (BMI) [Ratio] 47.44 kg/m2 Desean Rondon RUG RENOVATOR-[employer] Work Phone: [facility] 02-23-2024 10:33-0400 Body temperature 97.81 [degF] Desean Rondon RUG RENOVATOR-[employer] Work Phone: [facility] 02-23-2024 10:33-0400 Body weight 117.66 kg Desean Rondon RUG RENOVATOR-[employer] Work Phone: [facility] 02-23-2024 10:33-0400 Diastolic blood pressure 84 mm[Hg] Desean Rondon RUG RENOVATOR-[employer] Work Phone: [facility] 02-23-2024 10:33-0400 Heart rate 97 /min eDsean Rondon APRN-HAY CHOPPER Work Phone: [facility] 02-23-2024 10:33-0400 Respiratory rate 24 /min Desean Rondon RUG RENOVATOR-[employer] Work Phone: [facility] 02-23-2024 10:33-0400 SaO2% (BldA) [Mass fraction] 97 % Desean Rondon RUG RENOVATOR-[employer] Work Phone: [facility] 02-23-2024 10:33-0400 Systolic blood pressure 130 mm[Hg] Desean Rondon APRN-HAY CHOPPER Work Phone: [facility] 02-14-2024 09:14-0400 Body height 157.5 cm Desean Rondon RUG RENOVATOR-[employer] Work Phone: [facility] 02-14-2024 09:14-0400 Body mass index (BMI) [Ratio] 46.38 kg/m2 Desean Rondon RUG RENOVATOR[employer] Work Phone: [facility] 02-14-2024 09:14-0400 Body temperature 97.81 [degF] Desean Rondon RUG RENOVATOR-[employer] Work Phone: [facility] 02-14-2024 09:14-0400 Body weight 115.03 kg Desean Rondon RUG RENOVATOR[employer] Work Phone: [facility] 02-14-2024 09:14-0400 Diastolic blood pressure 80 mm[Hg] Desean Rondon APRN-[employer] CH[employer]PER Work Phone: [facility] 02-14-2024 09:14-0400 Heart rate 77 /min Desean Rondon APRN-[employer]PER Work Phone: [facility] 02-14-2024 09:14-0400 Respiratory rate 18 /min Desean Rondon APRN-[employer]PER Work Phone: [facility] 02-14-2024 09:14-0400 SaO2% (BldA) [Mass fraction] 97 % Desean Rondon APRN-[employer]AY CHOPPER Work Phone: [facility] 02-14-2024 09:14-0400 Systolic blood pressure 138 mm[Hg] Deseannieves Rondon APRNPositive NetworksHAY CHOPPER Work Phone: [facility] Encounters Encounter Date Encounter Type Care Provider Facility Start: 03-21-2025 End: 03-21-2025 Patient encounter status [facility]igil [facility] Work Phone: [facility] [employer] Work Phone: Start: 03-21-2025 End: 03-21-2025 Periodic preventive med est patient 40-64yrs Amy [facility] Work Phone: [facility] Comment on above: Wellness examination (Primary Dx); Insomnia, unspecified type; Acquired hypothyroidism; Impaired fasting blood sugar; Essential hypertension; Class 3 severe obesity due to excess calories with serious comorbidity and body mass index (BMI) of 45.0 to 49.9 in adult ([facility]) Start: 03-21-2025 End: 03-21-2025 ambulatory [facility] Start: 03-21-2025 Encounter for genera l adult medical examination without abnormal findings [facility] Start: 10-06-2024 End: 10-06-2024 ambulatory Yoko Cancelliere RN [facility] Start: 08-12-2024 End: 08-13-2024 Refill Desean J Alcon ZAYAS-HAY CHOPPER Work Phone: [facility] Comment on above: Acquired hypothyroid ism Start: 07-05-2024 End: 07-05-2024 ambulatory [facility] Start: 07-05-2024 End: 07-05-2024 Office outpatient visit 15 minutes Desean Rondon APRN-HAY CH[employer]PER Work Phone: [facility] Comment on above: Acquired hypothyroid ism (Primary Dx); Insomnia, unspecified type Start: 07-05-2024 End: 07-05-[address] [facility] Start: 02-23-2024 End: 02-23-2024 Patient encounter procedure Desean Walter Rondon APRN-[employer]AY CH[employer]PER Work Phone: [facility] Work Phone: Start: 02-23-2024 End: 02-23-2024 Periodic preventive med est patient 40-64yrs Desean Rondon APRN-HAY CHOPPER Work Phone: [facility] Comment on above: Annual physical exam (Primary Dx); Acquired hypothyroidism; Referral of patient Start: 02-14-2024 End: 02-14-2024 ambulatory [facility] Start: 02-14-2024 Encounter for genera l adult medical examination without abnormal findings [facility] Start: 02-14-2024 End: 02-14-2024 Initial preventive medicine new patient 40-64yrs Desean Rondon APRN-[employer]AY [employer]PER Work Phone: [facility] Comment on above: Annual physical exam (Primary Dx); Encounter for screening mammogram for malignant neoplasm of breast; Blood tests for routine general physical examination Start: 02-14-2024 End: 02-14-2024 Patient encounter procedure [facility] Work Phone: [facility] Start: 02-14-2024 End: 02-14-2024 Physical examination [facility] Work Phone: [facility] Start: 10-14-2023 End: 10-17-2023 ambulatory MELANIE PAREKH [facility] Start: 10-14-2023 End: 10-17-2023 ambulatory ROGERS REEVES [facility] Start: 10-14-2023 End: 10-16-2023 Subsequent hospital visit by physician [facility] Additional Xray [facility] Comment on above: Left elbow pain Start: 04-20-2022 End: 04-20-[address] HANK BARTLETT Facility:H1 Procedures Date Procedure Procedure Detail Performing Clinician Start: 03-21-2025 Adult depression screening assessment Amy Eppsuch [facility] Work Phone: Start: 07-05-2024 Adult depression screening assessment Desean Rondon [facility] Work Phone: Start: 02-23-2024 Adult depression screening assessment Desean Rondon [facility] Work Phone: Start: 02-14-2024 Adult depression screening assessment Desean Rondon [facility] Work Phone: Start: 10-14-2023 Radex elbow complete minimum 3 views Rogers Reeves MD Work Phone: Plan of Treatment Date Care Activity Detail Author Start: 04-20-2029 DTaP,Tdap and Td Vaccines (2 - Td or Tdap) DTaP,Tdap and Td Vaccines (2 - Td or Tdap) [facility] Start: 04-20-2029 DTaP/Tdap/Td vaccine (2 - Td or Tdap) DTaP/Tdap/Td vaccine (2 - Td or Tdap) [facility] Start: 03-21-2026 Adult BMI Screening Adult BMI Screen ing [facility] Start: 03-21-2026 Depression Screening Depression Scre ening [facility] Start: 03-21-2026 Tobacco Screening Tobacco Screening [facility] Start: 07-05-2025 Adult BMI Follow Up Plan Adult BMI Follow Up Plan [facility] Start: 07-05-2025 Adult BMI Screening Adult BMI Screen ing [facility] Start: 07-05-2025 Depression Screening Depression Scre ening [facility] Start: 07-05-2025 Tobacco Screening Tobacco Screening [facility] Start: 05-13-2025 Influenza vaccination Influenza Vacc ine [facility] Start: 04-25-2025 End: 04-25-2025 Patient encounter procedure 04/25/2025 11:40 AM EDT Office Visit [facility] [address] [place] [address] Amy Walter, RUG RENOVATOR-[employer]PER [address] [place] [address] [facility] Start: 03-21-2025 End: 03-21-2026 Lipid 1996 panel - Serum or Plasma [facility] Comment on above: Expected: 03/21/2025 (Approximate), Expires: 03/21/2026 Start: 02-25-2025 End: 02-25-2025 Patient encounter procedure 02/25/2025 1:20 PM EDT Office Visit [facility] [address] [place] [address] Desean Rondon, RUG RENOVATOR-[employer]PER [address] [place] [address] [facility] Start: 02-22-2025 Adult BMI Follow Up Plan Adult BMI Follow Up Plan [facility] Start: 02-22-2025 Adult BMI Screening Adult BMI Screen ing [facility] Start: 02-22-2025 Depression Screening Depression Scre ening [facility] Start: 02-22-2025 Tobacco Screening Tobacco Screening [facility] Start: 02-13-2025 Adult BMI Follow Up Plan Adult BMI Follow Up Plan [facility] Start: 02-13-2025 Adult BMI Screening Adult BMI Screen ing [facility] Start: 02-13-2025 Depression Screening Depression Scre ening [facility] Start: 02-13-2025 Tobacco Screening Tobacco Screening [facility] Start: 05-31-2024 End: 05-31-2024 Patient encounter procedure 05/31/2024 11:20 AM EDT [facility] [address] [place] [phone] Desean Rondon, RUG RENOVATOR-[employer]PER [address] [place] [address] [facility] Start: 05-13-2024 Influenza vaccination Influenza Vacc ine [facility] Start: 02-14-2024 End: 02-13-2025 DBT Breast - bilateral screening Mammography screening bilateral with CAD Imaging Routine Encounter for screening mammogram for malignant neoplasm of breast Expected: 02/14/2024, Expires: 02/13/2025 [facility] Work Phone: Comment on above: Expected: 02/14/2024 , Expires: 02/13/2025 Start: 04-12-2023 Influenza vaccination Flu vaccine (# 1) [facility] [employer] Start: 2021 Lipid panel Lipids [facility] [employer] Start: 2021 Screening for malign ant neoplasm of breast Mammogram [facility] Start: 2011 Screening for malign ant neoplasm of cervix [facility] [employer] Start: 2002 Screening for malign ant neoplasm of cervix Pap smear [facility] [employer] Start: 1999 Adult BMI Follow Up Plan Adult BMI Follow Up Plan [facility] Start: 1999 Hepatitis C screening Hepatitis C sc reen [facility] [employer] Start: 1996 HIV screening HIV screen [facility] [employer] Start: 1993 Depression Screen Depression Screen [facility] [employer] Start: 1982 Varicella vaccine (1 of 2 - 2-dose childhood series) Varicella vaccine (1 of 2 - 2-dose childhood series) [facility] Start: 1981 COVID-19 Vaccine (#1) COVID-19 Vacci ne (#1) [facility] Start: 1981 Hepatitis B vaccine (1 of 3 - 3-dose series) Hepatitis B vaccine (1 of 3 - 3-dose series) [facility] End: 03-21-2026 CBC W Auto Differential panel - Blood CBC auto differential Lab Routine Wellness examination 1 Occurrences starting 03/21/2025 until 03/21/2026 [facility] Comment on above: 1 Occurrences starti ng 03/21/2025 until 03/21/2026 CBC W Auto Different ial panel - Blood CBC auto differential Lab Routine Wellness examination 03/21/2025 1:35 PM EDT [facility] End: 03-21-2026 Comprehensive metabolic 2000 panel - Serum or Plasma Comprehensive metabolic panel Lab Routine Wellness examination 1 Occurrences starting 03/21/2025 until 03/21/2026 [facility] Comment on above: 1 Occurrences starti ng 03/21/2025 until 03/21/2026 Comprehensive metabo lic 2000 panel - Serum or Plasma Comprehensive metabolic panel Lab Routine Wellness examination 03/21/2025 1:35 PM EDT [facility] End: 03-21-2026 Hemoglobin A1c/Hemoglobin.total in Blood Hemoglobin A1c Lab Routine Impaired fasting blood sugar 1 Occurrences starting 03/21/2025 until 03/21/2026 [facility] Comment on above: 1 Occurrences starti ng 03/21/2025 until 03/21/2026 Hemoglobin A1c/Hemoglobin.total in Blood Hemoglobin A1c Lab Routine Impaired fasting blood sugar 03/21/2025 1:35 PM EDT [facility] End: 03-21-2026 Thyroid profile includes TSH FT4 Thyroid profile includes TSH FT4 Lab Routine Acquired hypothyroidism 1 Occurrences starting 03/21/2025 until 03/21/2026 [employer] Phone: Comment on above: 1 Occurrences starti ng 03/21/2025 until 03/21/2026 Thyroid profile includes TSH FT4 Thyroid profile includes TSH FT4 Lab Routine Acquired hypothyroidism 03/21/2025 1:35 PM EDT [facility] End: 07-05-2025 Thyrotropin [Units/volume] in Serum or Plasma TSH Lab Routine Acquired hypothyroidism 1 Occurrences starting 07/05/2024 until 07/05/2025 [employer] [facility] Work Phone: Comment on above: 1 Occurrences starti ng 07/05/2024 until 07/05/2025 Immunizations Immunization Date Immunization Notes Care Provider Patel cohn 04-20-2019 tetanus toxoid, redu kelly diphtheria toxoid, and acellular pertussis vaccine, adsorbed Desean Rondon [employer] Work Phone: [facility] Payers Date Payer Category Payer Commercial Managed C are - POS [employer] [id number] 2023 Private Health Insurance AETMCKENNA DAVIS POS II/EPO [id number] 2023-Present [phone] [address] [place] [address] [id number] 2023 Private Health Insurance [id number] 1980 Unknown [id number] 1980 Unknown [id number] 1981 Unknown [id number] 1981 Unknown [id number] 1981 Unknown [id number] 1981 Unknown [id number] [id number] 1980 Unknown [id number] 1958 Self-pay [id number] Social History Date Type Detail Facility Tobacco smoking stat [facility] Tobacco smoking consumption unknown [facility] Work Phone: Start: 01-13-2013 Alcohol intake Current non-dr test eng of alcohol (finding) [facility] Start: 01-13-2013 End: 10-23-2020 History of Social function [facility] Start: 01-13-2013 End: 10-23-2020 Tobacco use panel [facility] Start: 1980 Sex Assigned At Not on file [facility] Start: 02-14-2024 Tobacco smoking stat [facility] Ex-smoker [facility] History of tobacco use Current smoker Pro [facility] History of tobacco use Cigarette Smoker P [facility] Start: 02-14-2024 Tobacco use and exposure Smokeless tobacco non-user [facility] Start: 02-23-2024 End: 03-21-2025 Alcoholic beverage intake Current drinker of alcohol (finding) [facility] Adolescent depressio n screening assessment 0 [facility] Start: 04-20-2019 Alcohol Comment occasional [facility] Start: 04-17-2015 Sex Female (finding) [facility] Clinical Notes 02-14-2024 to 03-21-2025 Amy Walter APRN-SIXTO - 03/21/2025 1:00 PM EDTTelephone Encounter - Yoko Solitario RN - 10/06/2024 12:59 PM ESTTelephone Encounter - Yoko Solitario RN - 10/06/2024 12:59 PM EST Note Date & Type Note Facility 03-21-2025 History of Presen t illness Narrative [address] [place] [address] Patient: Alexia Stark Date of : 1980 Encounter Date: 03/21/2025 History of Present Illness: The patient is a 44 y.o. female, an established patient, and is here for Chief Complaint Patient presents with well person . HPI Patient is here for a wellness exam. She is new to me, was a patient of nurse practitioner who has left the practice. Pt is , not sexually active. Not at risk for . She has never had a PAP exam nor mammogram done. She's lost 14lbs since Jun with switching jobs to [employer] locally. She is very active at this job which has helped her lose weight. Her previous provider has mentioned her BP is 'elevated' but she has never had treatment for this nor does she check BP at home. Problem List Items Addressed This Visit None Visit Diagnoses Wellness examination - Primary Relevant Orders Comprehensive metabolic panel Lipid profile CBC auto differential Insomnia, unspecified type Acquired hypothyroidism Relevant Orders Thyroid profile includes TSH FT4 Impaired fasting blood sugar Relevant Orders Hemoglobin A1c Essential hypertension Relevant Medications lisinopriL (PRINIVIL,ZESTRIL) 10 mg tablet Class 3 severe obesity due to excess calories with serious comorbidity and body mass index (BMI) of 45.0 to 49.9 in adult ([facility]) Past Medical, Family, and Social History Update: The following portions of the patient's history were reviewed and updated as appropriate: allergies, current medications, past family history, past medical history, past social history, past surgical history and problem list. Past Medical History: Diagnosis Date Gall stone pancreatitis Migraine Ob[place] Se[place] Thyroid condition Visual impairment Past Surgical History: Procedure Laterality Date ELBOW FUSION ELBOW SURGERY GALLBLADDER SURGERY Stent placement Current Outpatient Medications Medication Sig Dispense Refill levothyroxine (SYNTHROID, LEVOTHROID) 25 MCG tablet TAKE 1 TABLET BY MOUTH IN THE MORNING 90 tablet 1 traZODone (DESYREL) 50 mg tablet Take 1 tablet (50 mg total) by mouth nightly. 30 tablet 1 lisinopriL (PRINIVIL,ZESTRIL) 10 mg tablet Take 1 tablet (10 mg total) by mouth in the morning. 30 tablet 1 No current facility-administered medications for this visit. (All medications reviewed and updated by provider since last office visit or hospitalization) Allergies: Patient has no known allergies. Tobacco History: Social History Tobacco Use Smoking Status Former Types: Cigarettes Smokeless Tobacco Never (If patient a smoker, smoking cessation counseling offered) Social History: Social History Substance and Sexual Activity Alcohol Use Yes Comment: occasional Review of Systems: Review of Systems Constitutional: Positive for unexpected weight change (14 lbs weight loss after switching jobs). Negative for chills and fever. HENT: Negative for ear pain and sore throat. Eyes: Negative for pain and visual disturbance. Respiratory: Negative for cough and shortness of breath. Cardiovascular: Negative for chest pain and palpitations. Gastrointestinal: Negative for abdominal pain and vomiting. Genitourinary: Negative for dysuria and hematuria. Musculoskeletal: Negative for arthralgias and back pain. Skin: Negative for color change and rash. Neurological: Negative for seizures and syncope. Psychiatric/Behavioral: Negative. All other systems reviewed and are negative. Physical Exam: BP 138/88 (BP Site: Left Arm, BP Postition: Sitting, BP CUFF SIZE: L (13-17 inches)) Pulse 80 Temp 36.6 C (97.8 F) (Tympanic) Resp 18 Ht 157.5 cm (5' 2.01 ) Wt 112.6 kg (248 lb 3.2 oz) SpO2 97% BMI 45.38 kg/m Physical Exam Vitals reviewed. Constitutional: Appearance: Normal appearance. She is obese. HENT: Head: Normocephalic and atraumatic. Right Ear: Tympanic membrane, ear canal and external ear normal. Left Ear: Tympanic membrane, ear canal and external ear normal. Ears: Comments: Small amount of cerumen removed from RAC, no bleeding Nose: Nose normal. Mouth/Throat: Mouth: Mucous membranes are moist. Eyes: Pupils: Pupils are equal, round, and reactive to light. Neck: Thyroid: No thyroid mass, thyromegaly or thyroid tenderness. Cardiovascular: Rate and Rhythm: Normal rate and regular rhythm. Heart sounds: Normal heart sounds. Pulmonary: Effort: Pulmonary effort is normal. Breath sounds: Normal breath sounds. Abdominal: General: Bowel sounds are normal. Palpations: Abdomen is soft. Tenderness: There is no abdominal tenderness. Musculoskeletal: Right lower leg: No edema. Left lower leg: No edema. Lymphadenopathy: Cervical: No cervical adenopathy. Skin: General: Skin is warm. Capillary Refill: Capillary refill takes less than 2 seconds. Neurological: General: No focal deficit present. Mental Status: She is alert and oriented to person, place, and time. Gait: Gait normal. Psychiatric: Mood and Affect: Mood normal. Behavior: Behavior normal. Assessment and Plan: Alexia was seen today for well person. Diagnoses and all orders for this visit: Wellness examination - Comprehensive metabolic panel; Future - Lipid profile; Future - CBC auto differential; Future - CBC auto differential - Lipid profile - Comprehensive metabolic panel Insomnia, unspecified type Acquired hypothyroidism - Thyroid profile includes TSH FT4; Future - Thyroid profile includes TSH FT4 Impaired fasting blood sugar - Hemoglobin A1c; Future - Hemoglobin A1c Essential hypertension Class 3 severe obesity due to excess calories with serious comorbidity and body mass index (BMI) of 45.0 to 49.9 in adult ([facility]) Other orders - lisinopriL (PRINIVIL,ZESTRIL) 10 mg tablet; Take 1 tablet (10 mg total) by mouth in the morning. Follow-up: Health maintenance and immunizations were discussed and recommendations were made. She declines all immunizations and PAP and mammogram. She will continue to perform SBEs. She will consider getting skin cancer assessment with dermatology. Depression screening was neg today. BP elevated for several visits, will start FAUSTO-I, MOA and potential side effects discussed as well as information sheet placed in after visit summary. Patient noted to have elevated BMI and the following intervention(s) were applied: encouragement to exercise and prescribed diet education. Attempt 30 min walk before dinner and start meal prepping before work with addition of fresh fruits and vegetables. F/u in 1 mo for BP re-check. Take BP at home 2-3 times/week and record in phone for goal BP <130/80. JOSE HOLDER APRN-CNP 03/21/25 1428 documented in this encounter [facility] 10-06-2024 Miscellaneous Notes Formattin g of this note might be different from the original. ----- Message from Adina sent at 10/06/2024 12:53 PM EST ----- 198 Alexia re 101.8 fever no appetite and chills documented in this encounter [facility] 10-06-2024 Telephone encount er Note ----- Message from Adina sent at 10/06/2024 12:53 PM EST ----- 198 Alexia re 101.8 fever no appetite and chills [facility] 07-05-2024 History of Presen t illness Narrative Images from the original note were not included. [address] [place] [address] SUBJECTIVE: Patient ID: Alexia Stark is a 44 y.o. female. Chief Complaint Patient presents with Hypothyroidism Presents for follow up States she has been having trouble sleeping. She does work 2nd shift. Request medication today. Is taking levothyroxine but admits she has missed a few days here and there. New diagnosis of hypothyroidism at last visit. Hypothyroidism Presents for follow-up visit. Patient reports no diaphoresis, menstrual problem or palpitations. The symptoms have been stable. Insomnia This is a recurrent problem. The current episode started more than 1 month ago. The problem occurs intermittently. The problem has been waxing and waning. Pertinent negatives include no abdominal pain, chest pain, chills, diaphoresis, fever, headaches, myalgias or weakness. Nothing aggravates the symptoms. She has tried rest, position changes, relaxation and lying down for the symptoms. The treatment provided mild relief. The following portions of the patient's history were reviewed and updated as appropriate: allergies, current medications, past family history, past medical history, past social history, past surgical history and problem list. Past Surgical History: Procedure Laterality Date ELBOW FUSION ELBOW SURGERY GALLBLADDER SURGERY Stent placement Past Medical History: Diagnosis Date Gall stone pancreatitis Migraine Obesity Seizures (CMS-HCC) Thyroid condition Visual impairment Immunization History Administered Date(s) Administered Tdap 04/20/2019 REVIEW OF SYSTEMS: Review of Systems Constitutional: Negative for chills, diaphoresis and fever. HENT: Negative. Eyes: Negative for visual disturbance. Respiratory: Negative for chest tightness and shortness of breath. Cardiovascular: Negative for chest pain and palpitations. Gastrointestinal: Negative. Negative for abdominal pain. Endocrine: Negative. Genitourinary: Negative for menstrual problem and pelvic pain. Musculoskeletal: Negative. Negative for myalgias. Skin: Negative. Allergic/Immunologic: Negative. Neurological: Negative for syncope, facial asymmetry, weakness and headaches. Hematological: Does not bruise/bleed easily. Psychiatric/Behavioral: The patient has insomnia. PHYSICAL EXAMINATION: Vitals: 07/05/24 1323 BP: 138/72 BP Site: Left Arm BP Postition: Sitting Pulse: 90 Resp: 18 Temp: 36.7 C (98.1 F) TempSrc: Oral SpO2: 98% Weight: 119.1 kg (262 lb 9.6 oz) Height: 157.5 cm (5' 2 ) Patient noted to have elevated BMI and the following intervention(s) were applied: encouragement to exercise. Physical Exam Vitals and nursing note reviewed. Constitutional: General: She is not in acute distress. Appearance: She is well-developed. She is not diaphoretic. HENT: Head: Normocephalic and atraumatic. Right Ear: Tympanic membrane and external ear normal. Left Ear: Tympanic membrane and external ear normal. Nose: Nose normal. Mouth/Throat: Mouth: Mucous membranes are moist. Pharynx: No oropharyngeal exudate. Eyes: General: Right eye: No discharge. Left eye: No discharge. Conjunctiva/sclera: Conjunctivae normal. Pupils: Pupils are equal, round, and reactive to light. Neck: Thyroid: No thyromegaly. Vascular: No JVD. Cardiovascular: Rate and Rhythm: Normal rate and regular rhythm. Heart sounds: Normal heart sounds. No murmur heard. No friction rub. No gallop. Pulmonary: Effort: Pulmonary effort is normal. Breath sounds: Normal breath sounds. Abdominal: General: Bowel sounds are normal. There is no distension. Palpations: Abdomen is soft. There is no mass. Tenderness: There is no abdominal tenderness. Musculoskeletal: General: Normal range of motion. Cervical back: Normal range of motion and neck supple. Lymphadenopathy: Cervical: No cervical adenopathy. Skin: General: Skin is warm and dry. Capillary Refill: Capillary refill takes less than 2 seconds. Neurological: Mental Status: She is alert and oriented to person, place, and time. Deep Tendon Reflexes: Reflexes are normal and symmetric. Psychiatric: Mood and Affect: Mood normal. Behavior: Behavior normal. Thought Content: Thought content normal. Judgment: Judgment normal. ASSESSMENT/PLAN: Alexia was seen today for hypothyroidism. Diagnoses and all orders for this visit: Acquired hypothyroidism - TSH; Future Insomnia, unspecified type - traZODone (DESYREL) 50 mg tablet; Take 1 tablet (50 mg total) by mouth nightly. Hypothyroidism TSH draw today Currently taking levothyroxine 25 mcg oral daily. Will adjust dose according to TSH results Insomnia Works 2nd shift. Has sleeping difficulties. Start Trazodone 50 mg oral nightly Body mass index is 48.03 kg/m . Patient noted to have elevated BMI and the following intervention(s) were applied: Discussed current weight today. Consider healthy food choices, portion control. Avoid sugary beverages and high concentrated sweets. Routine exercise regimen encouraged. ALL QUESTIONS ANSWERED Total time spent was 25 minutes: Preparing to see the patient (e.g., review of tests) Obtaining and/or reviewing separately obtained history Performing a medically appropriate examination and/or evaluation Counseling and educating the patient/family/caregiver Ordering medications, tests, or procedures Follow-up: Annual physical Fasting labs JOSE Singleton 07/05/24 0831 documented in this encounter [facility] 02-23-2024 History of Presen t illness Narrative Images from the original note were not included. [address] [facility] [address] SUBJECTIVE: Patient ID: Alexia Stark is a 43 y.o. female. Chief Complaint Patient presents with Annual Exam thyroid Presents for annual physical She completed labs at last visit. Has been notified of results. Noted elevated TSH without history of hypothyroidism. Works full-time second shift at local [employer]. Does not smoke or consume alcohol. Has not had baseline mammogram. Is perimenopausal. 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 No children. The following portions of the patient's history were reviewed and updated as appropriate: allergies, current medications, past family history, past medical history, past social history, past surgical history and problem list. Past Surgical History: Procedure Laterality Date ELBOW FUSION ELBOW SURGERY GALLBLADDER SURGERY Stent placement Past Medical History: Diagnosis Date Gall stone pancreatitis Migraine Obesity Seizures (CMS-HCC) Thyroid condition Visual impairment Immunization History Administered Date(s) Administered Tdap 04/20/2019 REVIEW OF SYSTEMS: Review of Systems Constitutional: Negative for chills and fever. HENT: Negative. Eyes: Negative for visual disturbance. Respiratory: Negative for chest tightness and shortness of breath. Cardiovascular: Negative for chest pain and palpitations. Gastrointestinal: Negative. Endocrine: Negative. Genitourinary: Negative for menstrual problem and pelvic pain. Musculoskeletal: Negative. Skin: Negative. Allergic/Immunologic: Negative. Neurological: Negative for syncope and facial asymmetry. Hematological: Does not bruise/bleed easily. Psychiatric/Behavioral: Negative. PHYSICAL EXAMINATION: Vitals: 02/23/24 1033 BP: 130/84 BP Site: Left Arm BP Postition: Sitting Pulse: 97 Resp: 24 Temp: 36.6 C (97.8 F) TempSrc: Oral SpO2: 97% Weight: 117.7 kg (259 lb 6.4 oz) Height: 157.5 cm (5' 2 ) Patient noted to have elevated BMI and the following intervention(s) were applied: encouragement to exercise. Component Latest Ref Rng 02/14/2024 Cholesterol 150 - 200 mg/dL 111 (L) Triglycerides 27 - 150 mg/dL 51 HDL >39 mg/dL 62 VLDL 0 - 30 mg/dL 10 LDL (calc) <130 mg/dL 39 Cholesterol:HDL Ratio 1.0 - 5.0 1.8 Component Latest Ref Rng 02/14/2024 Sodium 134 - 146 mmol/L 140 Potassium 3.5 - 5.0 mmol/L 3.6 Chloride 98 - 109 mmol/L 102 CO2 22 - 32 mmol/L 28 Anion gap 5 - 15 mmol/L 10 BUN 5 - 23 mg/dL 8 Creatinine 0.40 - 1.00 mg/dL 0.59 Glucose 65 - 99 mg/dL 109 (H) Calcium 8.5 - 10.5 mg/dL 9.2 Total Protein 6.0 - 8.0 g/dL 7.9 Albumin 3.2 - 5.3 g/dL 4.3 Alkaline phosphatase 39 - 130 U/L 114 AST 0 - 41 U/L 28 ALT 0 - 31 U/L 33 (H) Total bilirubin 0.3 - 1.2 mg/dL 0.8 eGFR (CKD-EPI)non-race dependent >59 ml/min/1.73sq.m >90 Component Latest Ref Rng 02/14/2024 White Blood Cells 4.0 - 11.0 X10E9/L 9.6 RBC count 3.80 - 5.20 X10E12/L 5.18 Hemoglobin 11.7 - 15.5 g/dL 15.3 Hematocrit 35 - 47 % 44.8 MCV 80 - 100 fL 87 MCH 27 - 34 pg 29.5 MCHC 32 - 36 g/dL 34.1 RDW 11.5 - 15.0 % 15.1 (H) Platelets 150 - 450 X10E9/L 268 MPV 7 - 12 fL 8.6 % neutrophils % 72.6 % lymphocytes % 17.2 % monocytes % 7.0 % eosinophils % 2.8 % Basophils % 0.4 Neutrophils Absolute (A) 1.5 - 6.6 X10E9/L 7.0 (H) Lymphocytes Absolute 1.0 - 3.5 X10E9/L 1.7 Monocytes Absolute 0 - 0.9 X10E9/L 0.7 Eosinophils Absolute 0.0 - 0.4 X10E9/L 0.3 Basophils Absolute 0.0 - 0.2 X10E9/L 0.0 Component Latest Ref Rng 02/14/2024 Hemoglobin A1C Confirmation 4.4 - 5.6 % 5.5 Average glucose mg/dL 111 Component Latest Ref Rng 02/14/2024 TSH 0.49 - 4.67 uIU/mL 5.04 (H) Legend: (H) High Physical Exam Vitals and nursing note reviewed. Constitutional: General: She is not in acute distress. Appearance: She is well-developed. She is not diaphoretic. HENT: Head: Normocephalic and atraumatic. Right Ear: Tympanic membrane and external ear normal. Left Ear: Tympanic membrane and external ear normal. Nose: Nose normal. Mouth/Throat: Mouth: Mucous membranes are moist. Pharynx: No oropharyngeal exudate. Eyes: General: Right eye: No discharge. Left eye: No discharge. Conjunctiva/sclera: Conjunctivae normal. Pupils: Pupils are equal, round, and reactive to light. Neck: Thyroid: No thyromegaly. Vascular: No JVD. Cardiovascular: Rate and Rhythm: Normal rate and regular rhythm. Heart sounds: Normal heart sounds. No murmur heard. No friction rub. No gallop. Pulmonary: Effort: Pulmonary effort is normal. Breath sounds: Normal breath sounds. Abdominal: General: Bowel sounds are normal. There is no distension. Palpations: Abdomen is soft. There is no mass. Tenderness: There is no abdominal tenderness. Musculoskeletal: General: Normal range of motion. Cervical back: Normal range of motion and neck supple. Lymphadenopathy: Cervical: No cervical adenopathy. Skin: General: Skin is warm and dry. Capillary Refill: Capillary refill takes less than 2 seconds. Neurological: Mental Status: She is alert and oriented to person, place, and time. Deep Tendon Reflexes: Reflexes are normal and symmetric. Psychiatric: Mood and Affect: Mood normal. Behavior: Behavior normal. Thought Content: Thought content normal. Judgment: Judgment normal. ASSESSMENT/PLAN: Alexia was seen today for annual exam. Diagnoses and all orders for this visit: Annual physical exam Acquired hypothyroidism - levothyroxine (SYNTHROID, LEVOTHROID) 25 MCG tablet; Take 1 tablet (25 mcg total) by mouth in the morning. Referral of patient - [facility] - [facility] - [place], [place] - Consult; Future Mammogram previously ordered at last visit. Has not had baseline screening. Lab results reviewed face to face today. TSH elevated 5.04. Start levothyroxine 25 mcg oral daily. Repeat thyroid panel in 3 months Referral to WASH HOUSE WORKER for establishment. Has not had baseline PAP. Not sexually active but admits her menses is not regular. Last menses was October 2023. Perimenopausal. Body mass index is 47.44 kg/m . Patient noted to have elevated BMI and the following intervention(s) were applied: Discussed current weight today. Consider healthy food choices, portion control. Avoid sugary beverages and high concentrated sweets. Routine exercise regimen encouraged. ALL QUESTIONS ANSWERED Total time spent was 30 minutes: Preparing to see the patient (e.g., review of tests) Obtaining and/or reviewing separately obtained history Performing a medically appropriate examination and/or evaluation Counseling and educating the patient/family/caregiver Ordering medications, tests, or procedures Follow-up: 3 months Hypothyroid with lab draw JOSE Singleton 02/23/24 1116 documented in this encounter [facility] 02-14-2024 History of Presen t illness Narrative Images from the original note were not included. [address] [facility] [id number] SUBJECTIVE: Patient ID: Alexia Stark is a 43 y.o. female. Chief Complaint Patient presents with new patient Presents as new patient establishment. Has not been seen by PCP in many years. Has never been seen by WASH HOUSE WORKER provider. Relates she does not have regular menses. Reports last menses was beginning of the year . Irregular menses is chronic, has been occurring since her 30's. Has not had baseline mammogram. No recent lab work. Family history positive for CAD and DM. Works full-time at local factory. The following portions of the patient's history were reviewed and updated as appropriate: allergies, current medications, past family history, past medical history, past social history, past surgical history and problem list. Past Surgical History: Procedure Laterality Date ELBOW FUSION ELBOW SURGERY GALLBLADDER SURGERY Stent placement Past Medical History: Diagnosis Date Gall stone pancreatitis Migraine Obesity Seizures ([facility]) Visual impairment Immunization History Administered Date(s) Administered Tdap 04/20/2019 REVIEW OF SYSTEMS: Review of Systems Constitutional: Negative for chills and fever. HENT: Negative. Eyes: Negative for visual disturbance. Respiratory: Negative for chest tightness and shortness of breath. Cardiovascular: Negative for chest pain and palpitations. Gastrointestinal: Negative. Endocrine: Negative. Genitourinary: Negative. Negative for menstrual problem and pelvic pain. Musculoskeletal: Negative. Skin: Negative. Allergic/Immunologic: Negative. Neurological: Negative for syncope and facial asymmetry. Hematological: Does not bruise/bleed easily. Psychiatric/Behavioral: Negative. PHYSICAL EXAMINATION: Vitals: 02/14/24 0914 BP: 138/80 BP Site: Left Arm BP Postition: Sitting Pulse: 77 Resp: 18 Temp: 36.6 C (97.8 F) TempSrc: Oral SpO2: 97% Weight: 115 kg (253 lb 9.6 oz) Height: 157.5 cm (5' 2 ) Patient noted to have elevated BMI and the following intervention(s) were applied: encouragement to exercise. Physical Exam Vitals and nursing note reviewed. Constitutional: General: She is not in acute distress. Appearance: She is well-developed. She is not diaphoretic. HENT: Head: Normocephalic and atraumatic. Right Ear: Tympanic membrane and external ear normal. Left Ear: Tympanic membrane and external ear normal. Nose: Nose normal. Mouth/Throat: Mouth: Mucous membranes are moist. Pharynx: No oropharyngeal exudate. Eyes: General: Right eye: No discharge. Left eye: No discharge. Conjunctiva/sclera: Conjunctivae normal. Pupils: Pupils are equal, round, and reactive to light. Neck: Thyroid: No thyromegaly. Vascular: No JVD. Cardiovascular: Rate and Rhythm: Normal rate and regular rhythm. Heart sounds: Normal heart sounds. No murmur heard. No friction rub. No gallop. Pulmonary: Effort: Pulmonary effort is normal. Breath sounds: Normal breath sounds. Abdominal: General: Bowel sounds are normal. There is no distension. Palpations: Abdomen is soft. There is no mass. Tenderness: There is no abdominal tenderness. Musculoskeletal: General: Normal range of motion. Cervical back: Normal range of motion and neck supple. Lymphadenopathy: Cervical: No cervical adenopathy. Skin: General: Skin is warm and dry. Capillary Refill: Capillary refill takes less than 2 seconds. Neurological: Mental Status: She is alert and oriented to person, place, and time. Deep Tendon Reflexes: Reflexes are normal and symmetric. Psychiatric: Mood and Affect: Mood normal. Behavior: Behavior normal. Thought Content: Thought content normal. Judgment: Judgment normal. ASSESSMENT/PLAN: Aleixa was seen today for new patient. Diagnoses and all orders for this visit: Annual physical exam Encounter for screening mammogram for malignant neoplasm of breast - Mammography screening bilateral with CAD; Future Blood tests for routine general physical examination - Comprehensive metabolic panel; Future - CBC auto differential; Future - Lipid profile; Future - Hemoglobin A1c; Future - TSH; Future Body mass index is 46.38 kg/m . Patient noted to have elevated BMI and the following intervention(s) were applied: Discussed current weight today. Consider healthy food choices, portion control. Avoid sugary beverages and high concentrated sweets. Routine exercise regimen encouraged. Wellness labs drawn in office today New orders for mammogram. Has not had baseline. We did discuss [employer] referral for establishment. She is ja-menopausal. States she has never had [employer] exam and does not wish to pursue. Denies family history of colon cancer. ALL QUESTIONS ANSWERED Total time spent was 40 minutes: Preparing to see the patient (e.g., review of tests) Obtaining and/or reviewing separately obtained history Performing a medically appropriate examination and/or evaluation Counseling and educating the patient/family/caregiver Ordering medications, tests, or procedures Follow-up: One year Annual physical JOSE Singleton 02/14/24 1043 documented in this encounter [facility] Evaluation note Diagnosis Left elbow pain Pain in joint, upper arm [facility]* Diagnosis Annual physical exam- Primary Routine general medical examination at a health care facility Acquired hypothyroidism Unspecified hypothyroidism Referral of patient Referral of patient without examination or treatment [facility] Diagnosis Annual physical exam- Primary Routine general medical examination at a health care facility Encounter for screening mammogram for malignant neoplasm of breast Blood tests for routine general physical examination Laboratory examination ordered as part of a routine general medical examination [facility] Diagnosis Acquired hypothyroidism- Primary Unspecified hypothyroidism Insomnia, unspecified type [facility] Diagnosis Acquired hypothyroidism Unspecified hypothyroidism [facility] Diagnosis Wellness examination- Primary Insomnia, unspecified type Acquired hypothyroidism Unspecified hypothyroidism Impaired fasting blood sugar Impaired fasting glucose Essential hypertension Unspecified essential hypertension Class 3 severe obesity due to excess calories with serious comorbidity and body mass index (BMI) of 45.0 to 49.9 in adult ([facility]) [facility]* Attachments The following attachments cannot be sent through Care Everywhere. * Yearly Physical for Adults (Maldivian) * Hypothyroidism (underactive thyroid) (Maldivian) [facility] Attachments The following attachments cannot be sent through Care Everywhere. * Yearly Physical for Adults (Maldivian) [facility] Attachments The following attachments cannot be sent through Care Everywhere. * Insomnia (Maldivian) * Hypothyroidism (underactive thyroid) (Maldivian) [facility] System[facility]ructionsNot on file documented in [facility] encounter[facility] SystemInstructionsNot on file [facility]* Attachments The following attachments cannot be sent through Care Everywhere. * Lisinopril, ADULT (Maldivian) [facility] HospitalReason for referral (narrative)* Consultation (Routine) - Authorized Specialty Diagnoses / Procedures Referred By Zaria noland Referred To Contact Obstetrics and Gynecology Diagnoses Referral of patient Desean Rondon APRN-CNP [address] [place] [address] [facility] [address] [place] [address] Referral ID Status Reason Start Date Expiration Date Visits Requested Visits Authorized [id number] Authorized Specialty Services Required 02/23/2024 02/22/2025 1 1 [facility] Summary Purpose Family History No Family History Records FoundNo Family History Records FoundNo Family History Records FoundNo Family History Records Found Advance Directives No Advanced Directives Records FoundLatest Code Status on File Code Status Date Activated Date Inactivated Comments Full Code 01/13/2013 11:35 AM 01/13/2013 6:21 PM Code Status History Code Status Date Activated Date Inactivated Comments Full Code 01/12/2013 5:02 PM 01/13/2013 11:35 AM Additional Source Comments INFORMATION SOURCE (unrecogn ized section and content) DATE CREATED AUTHOR 04/21/2022 [facility] DATE CREATED AUTHOR AUTHOR'S ORGANIZ ATION 10/17/2023 Sarah laureano DATE CREATED AUTHOR AUTHOR'S ORGANIZ ATION 07/07/2024 [facility] DATE CREATED AUTHOR AUTHOR'S ORGANIZ ATION 03/26/2025 [facility] Care Teams (unrecognized sec tion and content) Meteorological Observer Relationship Specialty Start Date End Date No, Pcp PCP - General 10/12/23 Meteorological Observer Relationship Specialty Start Date End Date Desean Rondon APRN-[facility] [address] [place] [address] PCP - General Family Medicine 02/14/24 Meteorological Observer Relationship Specialty Start Date End Date [facility] [address] [place] [address] PCP - General Family Medicine 02/14/24 Meteorological Observer Relationship Specialty Start Date End Date Desean Rondon [employer]-[facility] [address] [place] [address] PCP - General Family Medicine 02/14/24 Meteorological Observer Relationship Specialty Start Date End Date [facility] [address] [place] [address] PCP - General Family Medicine 02/14/24 Meteorological Observer Relationship Specialty Start Date End Date Desean Rodnon [employer]ATOR-[facility] [address] [place] [address] PCP - General Family Medicine 02/14/24 Meteorological Observer Relationship Specialty Start Date End Date [facility]ondon [facility] [address] LEFT PM 03/11/25 [place] [address] PCP - General Family Medicine 02/14/24 Reason for Visit (unrecogniz ed section and content) Reason Comments Annual Exam thyroid Reason Comments new patient Reason Comments Hypothyroidism Reason Comments Med Refill Reason Comments well person FOR RECORDS PERTAINING TO PATIENTS WHO ARE [...] BE BASED ON THE PRIMARY CLINICAL RECORDS. [facility] [employer] [facility]. provides no warranty or guarantee of the accuracy or completeness of information in this document.
--- OUTSIDE RECORDS SUMMARY | 2025-04-07 17:24 | XMS_ITS | Clinical Summary ---
Author Organization [facility] Address [address], [address] [place] [address] Care Team Providers Care Web Page Developer Name Role Phone No, Pcp Primary Care Provider Unavailabl e Allergies No known active allergies Medications Dextrose-Sodiu m Chloride (DEXTROSE 5 % AND 0.45 % NACL) 5-0.45 % infusion Infuse 75 mLs intravenously continuous. 1000 mL 0 3 Active morphine 2 MG/ML injection Infuse 1 mL intravenously every 4 hours as needed for Pain. 1 mL 0 3 Active ondansetron (ZOFRAN) 4 MG/2ML injection Infuse 4 mLs intravenously every 6 hours. 15 mL 3 Active pantoprazole (PROTONIX) 40 MG injection Infuse 40 mg intravenously daily. 40 mg 0 3 Active Active Problems Problem Noted Date Diagnosed Date Abdominal pain 01/12/2013 Liver function abnormality 01/12/2013 Biliary calculi, common bile duct 01/12/2013 Social History Tobacco Use Types Packs/Day Years Used Date Smoking Tobacco: Never Assessed Smokeless Tobacco: Never Alcohol Use Standard Drinks/Week Comments No 0 (1 standard drink = 0.6 oz pur e alcohol) Comments No Sex and Gender Information Value Date Recorded Sex Assigned at Not on file Legal Sex Female 10:38 AM EDT Gender Identity Not on file Sexual Orientation Not on file Last Filed Vital Signs Vital Sign Reading Time Taken Comments Blood Pressure 120/66 01/13/2013 3:24 PM EDT Pulse 77 01/13/2013 3:24 PM EDT Temperature 36.7 C (98.1 F) 01/13/2013 9:02 AM EDT Respiratory Rate 18 01/13/2013 12:4 0 PM EDT Oxygen Saturation 98% 01/13/2013 12: 40 PM EDT Inhaled Oxygen Concentration - - Weight 85.2 kg (187 lb 14.4 oz) 01/13/2013 5:49 AM EDT Height 154.9 cm (5' 1 ) 01/12/2013 11:4 5 AM EDT Body Mass Index 35.5 01/12/2013 11:45 AM EDT Plan of Treatment Health Maintenance Due Date Last Done Comments Depression Screen 1993 Varicella vaccine (1 of 2 - 13+ 2-dose series) 1994 HIV screen 1996 Hepatitis C screen 1999 Hepatitis B vaccine (1 of 3 - 19+ 3-dose series) 2000 Pap smear 2002 Cervical cancer screen 2011 HPV (without or with Pap) 2011 Breast cancer screen 2021 Lipids 2021 COVID-19 Vaccine (1 - 2023-2 5 season) 2024 Flu vaccine (#1) 04/12/2025 DTaP/Tdap/Td vaccine (2 - Td or Tdap) 04/20/2029 04/20/2019 HPV vaccine Aged Out No longer eligi ble based on patient's age to complete this topic Hepatitis A vaccine Aged Out No longe r eligible based on patient's age to complete this topic Hib vaccine Aged Out No longer eligi ble based on patient's age to complete this topic Meningococcal (ACWY) vaccine Aged Out No longer eligible based on patient's age to complete this topic Meningococcal B vaccine Aged Out No l onger eligible based on patient's age to complete this topic Pneumococcal 0-49 years Vaccine Aged Out No longer eligible based on patient's age to complete this topic Polio vaccine Aged Out No longer elig ible based on patient's age to complete this topic Insurance [facility] Advance Directives * Full Code (Latest Code Status on File) Date Activated Date Inactivated Comments 01/13/2013 11:35 AM 01/13/2013 6:21 PM * Full Code Date Activated Date Inactivated Comments 01/12/2013 5:02 PM 01/13/2013 11:35 AM Care Teams Web Page Developer Relationship Specialty Start Date End Date No, Pcp PCP - General 10/12/23
--- OUTSIDE RECORDS SUMMARY | 2025-04-07 17:24 | XMS_ITS | Clinical Summary ---
Author Organization [employer] s tem Address [id number] [address] [place] [address] Care Team Providers Care Auto Brake Mechanic Name Role Phone Crystal Rondon Primary Care Provid er Allergies No known active allergies Medications traZODone (DESYREL) 50 mg tabletIndications:I nsomnia, unspecified type Take 1 tablet (50 mg total) by mouth nightly. 30 tablet 1 4 Active levothyroxine (SYNTHROID, LEVOTHROID) 25 MCG tabletIndications:A cquired hypothyroidism TAKE 1 TABLET BY MOUTH IN THE MORNING 90 tablet 1 4 Active lisinopriL (PRINIVIL,ZESTRIL) 10 mg tablet Take 1 tablet (10 mg total) by mouth in the morning. 30 tablet 1 5 Active Active Problems No known active problems Encounters Date Type Department Care Team Description 03/29/2025 Results Follow-Up [facility] Internal Medicine - Family Medicine [address] [place] [address] Keara Davis APRN-CNP Hemoglobin A1c, CBC auto differential, Lipid profile, Additional followed-up results: 2 03/21/2025 1:00 PM EDT Office Visit [facility] Internal Medicine - Family Medicine [address] [place] [id number] Keara Davis APRN-CNP Wellness examination (Primary Dx); Insomnia, unspecified type; Acquired hypothyroidism; Impaired fasting blood sugar; Essential hypertension; Class 3 severe obesity due to excess calories with serious comorbidity and body mass index (BMI) of 45.0 to 49.9 in adult ([facility]) 03/21/2025 Travel from Last 3 Months Immunizations Immunization Administration Dates Next Due Tdap 04/20/2019 Family History Medical History Relation Name Comments Anxiety disorder Brother Depression Brother [id number] deficiency Brother Hyperlipidemia Brother Schizophrenia Brother Heart attack Father Hypertension Father Anuerysm Mother Stroke Mother Relation Name Status Comments Brother Alive Father Alive Mother Alive Social History Tobacco Use Types Packs/Day Years Used Date Smoking Tobacco: Former Cigarettes Smokeless Tobacco: Never Tobacco Cessation:Counseling Given: Not Answered Alcohol Use Standard Drinks/Week Comments Yes 0 (1 standard drink = 0.6 oz pur e alcohol) occasional PHQ-2 Answer Date Recorded Total Score 0 03/21/2025 Childcare Answer Date Recorded Childcare Unknown 02/21/2019 Employment Answer Date Recorded Employment Unknown 02/21/2019 Hunger Screening Answer Date Recorded Within the past 12 months we worried whether our food would run out before we got money to buy more. Never True 03/21/2025 Within the past 12 months th e food we bought just didn't last and we didn't have money to get more. Never True 03/21/2025 Purpose - Life Answer Date Recorded Purpose and direction in life Unknown Comments No Sex and Gender Information Value Date Recorded Sex Assigned at Not on file Legal Sex Female 11:29 AM EDT Gender Identity Not on file Sexual Orientation Not on file Last Filed Vital Signs Vital Sign Reading Time Taken Comments Blood Pressure 138/88 03/21/2025 12:37 PM EDT Pulse 80 03/21/2025 12:37 PM EDT Temperature 36.6 C (97.8 F) 03/21/2025 12:37 PM EDT Respiratory Rate 18 03/21/2025 12:3 7 PM EDT Oxygen Saturation 97% 03/21/2025 12: 37 PM EDT Inhaled Oxygen Concentration - - Weight 112.6 kg (248 lb 3.2 oz) 025 12:37 PM EDT Height 157.5 cm (5' 2.01 ) 03/21/2025 1 2:37 PM EDT Body Mass Index 45.38 03/21/2025 12:37 PM EDT Plan of Treatment Upcoming Encounters Date Type Department Care Team (Late st Contact Info) Description 04/25/2025 11:40 AM EDT Office Visit [facility] Internal Medicine - Family Medicine [address] [place] [address] Keara Davis, BUTT MAKER-CODE INSPECTOR [address] [place] [address] Health Maintenance Due Date Last Done Comments Pap Smear 2002 Mammogram 2021 Influenza Vaccine 05/13/2025 Adult BMI Follow Up Plan 03/21/2026 03/21/2025 Adult BMI Screening 03/21/2026 03/21/2025 Depression Screening 03/21/2026 03/21/2025 Tobacco Screening 03/21/2026 03/21/2025 DTaP,Tdap and Td Vaccines (2 - Td or Tdap) 04/20/2029 04/20/2019 Medical Devices Not on file Procedures Procedure Name Priority Date/Time Associated Diagnosis Comments THYROID PROFILE INCLUDES TSH FT4 Routine 03/21/2025 1:35 PM EDT Acquired hypothyroidism COMPREHENSIVE METABOLIC PANEL Routine 03/21/2025 1:35 PM EDT Wellness examination LIPID PROFILE Routine 03/21/2025 1:35 PM EDT Wellness examination CBC WITH AUTO DIFFERENTIAL Routine 03/21/2025 1:35 PM EDT Wellness examination HEMOGLOBIN A1C Routine 03/21/2025 1:35 PM EDT Impaired fasting blood sugar from Last 3 Months Results * Thyroid profile includes TSH FT4 (03/21/2025 1:35 PM EDT) FREE T4 0.84 0.61 - 1.60 ng/dL 03/21/2025 11:25 PM EDT [facility] TSH 3.75 0.49 - 4.67 uIU/mL 03/21/2025 11:25 PM EDT [facility] Blood Venous blood / Unknown 03/21/2025 1:35 PM EDT 03/21/2025 1:35 PM EDT Keara Davis BUTT MAKER-CODE INSPECTOR LAB BLOOD ORDERABLES Fin al Result [facility] [address] [place] [address], [place] [phone] * (ABNORMAL) CBC auto differential (03/21/2025 1:35 PM EDT) WBC 7.1 4 - 11 x10E9/L 03/21/2025 10:58 PM EDT [facility] RBC Count 5.16 3.8 - 5.2 X10E12/L 03/21/2025 10:58 PM EDT [facility] Hemoglobin 15.0 11.7 - 15.5 g/dL 03/21/2025 10:58 PM EDT [facility] Hematocrit 45.0 35 - 47 % 03/21/2025 10:58 PM EDT [facility] MCV 87 80 - 100 fL 03/21/2025 10:58 PM EDT [facility] MCH 29.1 27 - 34 pg 03/21/2025 10:58 PM EDT [facility] MCHC 33.4 32 - 36 g/dL 03/21/2025 10:58 PM EDT [facility] RDW 15.4(H) 11.5 - 15 % 03/21/2025 10:58 PM EDT [facility] Platelet Count 239 150 - 450 X10E9/L 03/21/2025 10:58 PM EDT [facility] MPV 8.2 7 - 12 fL 03/21/2025 10:58 PM EDT [facility] Neutrophils % 59.8 % 03/21/2025 10:58 PM EDT [facility] Lymphocytes % 25.3 % 03/21/2025 10:58 PM EDT [facility] Monocytes % 10.6 % 03/21/2025 10:58 PM EDT [facility] Eosinophils % 3.5 % 03/21/2025 10:58 PM EDT [facility] Basophils % 0.8 % 03/21/2025 10:58 PM EDT [facility] Neutrophils Absolute (A) 4.2 1.5 - 6.6 10*3/uL 03/21/2025 10:58 PM EDT [facility] Lymphocytes Absolute 1.8 1.0 - 3.5 10*3/uL 03/21/2025 10:58 PM EDT [facility] Monocytes Absolute 0.8 0.0 - 0.9 10*3/uL 03/21/2025 10:58 PM EDT [facility] Eosinophils Absolute 0.2 0.0 - 0.4 10*3/uL 03/21/2025 10:58 PM EDT [facility] Basophils Absolute 0.1 0.0 - 0.2 10*3/uL 03/21/2025 10:58 PM EDT [facility] Differential Type AUTOMATED DIFFERENTIAL 03/21/2025 10:58 PM EDT [facility] Blood Venous blood / Unknown 03/21/2025 1:35 PM EDT 03/21/2025 1:35 PM EDT Keara Davis BUTT MAKER-CODE INSPECTOR LAB BLOOD ORDERABLES Fin al Result [facility] [address] [place] [address], * (ABNORMAL) Hemoglobin A1c (03/21/2025 1:35 PM EDT) HEMOGLOBIN A1C 5.7(H) 4.4 - 5.6 % 03/22/2025 5:56 AM EDT [facility] Comment: ADA Guidelines Result HgbA1c Normal : less than 5.7 % Prediabetes : 5.7 % to 6.4 % Diabetes : > 6.4 % Use with caution in patients with abnormal hemoglobin variants as the half-life of red blood cells and in vivo glycation rates are affected. EST. AVERAGE GLUCOSE 117 mg/dL 03/22/2025 5:56 AM EDT [facility] Blood Venous blood / Unknown 03/21/2025 1:35 PM EDT 03/21/2025 1:35 PM EDT Keara Davis BUTT MAKER-CODE INSPECTOR LAB BLOOD ORDERABLES Fin al Result [facility] [address] [place] [address], [place] [phone] * (ABNORMAL) Lipid profile (03/21/2025 1:35 PM EDT) CHOLESTEROL 96(L) 150 - 200 mg/dL 03/21/2025 11:14 PM EDT [facility] TRIGLYCERIDE 68 27 - 150 mg/dL 03/21/2025 11:14 PM EDT [facility] HDL CHOLESTEROL 51 >39 mg/dL 11:14 PM EDT [facility] Comment: HDL <40 mg/dL - High Risk HDL > or = 40mg/dL- Desirable HDL >60 mg/dL - Negative Risk LDL (CALC) 31 <130 mg/dL 03/21/2025 11:14 PM EDT [facility] Comment: LDL <100 mg/dL - Desirable LDL >160 mg/dL - High Risk CHOLESTEROL:HDL 1.9 1.0 - 5.0 11:14 PM EDT [facility] VERY LOW LIPOPROTEIN 14 0 - 30 mg/dL 03/21/2025 11:14 PM EDT [facility] Blood Venous blood / Unknown 03/21/2025 1:35 PM EDT 03/21/2025 1:35 PM EDT Keara Davis BUTT MAKER-CODE INSPECTOR LAB BLOOD ORDERABLES Fin al Result [facility] [address] [place] [id number], * Comprehensive metabolic panel (03/21/2025 1:35 PM EDT) SODIUM 141 134 - 146 mmol/L 03/21/2025 11:14 PM EDT [facility] POTASSIUM 4.1 3.5 - 5.0 mmol/L 03/21/2025 11:14 PM EDT [facility] CHLORIDE 106 98 - 109 mmol/L 03/21/2025 11:14 PM EDT [facility] CARBON DIOXIDE 25 22 - 32 mmol/L 03/21/2025 11:14 PM EDT [facility] ANION GAP 10 5 - 15 mmol/L 03/21/2025 11:14 PM EDT [facility] BLOOD UREA NITROGEN 11 5 - 23 mg/dL 03/21/2025 11:14 PM EDT [facility] CREATININE 0.63 0.40 - 1.00 mg/dL 03/21/2025 11:14 PM EDT [facility] Comment:METHOD TRACEABLE TO IDMD STANDARD GLUCOSE 92 65 - 99 mg/dL 03/21/2025 11:14 PM EDT [facility] CALCIUM 9.0 8.5 - 10.5 mg/dL 03/21/2025 11:14 PM EDT [facility] TOTAL PROTEIN 7.4 6.0 - 8.0 g/dL 03/21/2025 11:14 PM EDT [facility] ALBUMIN 4.4 3.2 - 5.3 g/dL 03/21/2025 11:14 PM EDT [facility] ALKALINE PHOSPHATASE 88 39 - 130 U/L 03/21/2025 11:14 PM EDT [facility] AST 31 <=41 U/L 03/21/2025 11:14 PM EDT [facility] ALT 31 <=31 U/L 03/21/2025 11:14 PM EDT [facility] BILIRUBIN,TOTAL 0.5 0.3 - 1.2 mg/dL 03/21/2025 11:14 PM EDT [facility] EGFR Non-Race Dependent >90 >=60 ml/min/1.7 3sq.m 03/21/2025 11:14 PM EDT [facility] Comment: Reported eGFR is based on the CKD-EPI 2020 equation that does not use a race coefficient. Blood Venous blood / Unknown 03/21/2025 1:35 PM EDT 03/21/2025 1:35 PM EDT Keara Davis BUTT MAKER-CODE INSPECTOR LAB BLOOD ORDERABLES Fin al Result [facility] [address] [place] [address], from Last 3 Months Insurance [employer] [facility] [address] Care Teams Auto Brake Mechanic Relationship Specialty Start Date End Date Crystal Rondon, BUTT MAKER-CODE INSPECTOR [address] LEFT PM 03/11/25 [place] [address] PCP - General Family Medicine 02/14/24
--- OUTSIDE RECORDS SUMMARY | 2025-04-07 17:24 | XMS_ITS | Encounter Summary ---
Author Organization [facility] tem Address [id number] [address] [place] [address] Care Team Providers Care Chief Building Inspector Name Role Phone Crystal Rondon APRNREIMBURSEMENT SPEC Primary Care Provid er Encounter Details Date Type Department Care Team (Late st Contact Info) Description 03/29/2025 Results Follow-Up [facility] Internal Medicine - Family Medicine [address] [place] [address] Keara Davis APRN-REIMBURSEMENT SPEC [address] [place] [address] Hemoglobin A1c, CBC auto differential, Lipid profile, Additional followed-up results: 2 Social History Tobacco Use Types Packs/Day Years Used Date Smoking Tobacco: Former Cigarettes Smokeless Tobacco: Never Alcohol Use Standard Drinks/Week Comments Yes 0 [...] on file Sexual Orientation Not on file documented as of this encounter Plan of Treatment Upcoming Encounters Date Type Department Care Team (Late st Contact Info) Description 04/25/2025 11:40 AM EDT Office Visit [facility] Internal Medicine - Family Medicine [address] [place] [address] Keara Davis, RESAW MACHINE OPERATOR-REIMBURSEMENT SPEC [address] [place] [address] documented as of this encounter Visit Diagnoses Not on filedocumented in this encounter Additional Health Concerns Assessment Noted Time PHQ-9 Depression Total Score: 0 03/21/20 12:37 PM EDT A Body Mass Index follow-up plan has been documented for the patient 03/21/2025 2:28 PM EDT documented as of this encounter Care Teams Chief Building Inspector Relationship Specialty Start Date End Date Crystal Rondon, RESAW MACHINE OPERATOR-REIMBURSEMENT SPEC [address] PM 03/11/25 [place] [address] PCP - General Family Medicine 02/14/24 documented as of this encounter
[2025-04-07] MEDS: KETOROLAC TROMETHAMINE 30 MG/ML VIAL IVP (17:41)
[2025-04-07 17:46] LABS: Hematocrit 49.3 % (36.0-48.0); Hemoglobin 16.4 g/dL (12.0-16.0); Immature Granulocytes Abs Auto 0.04 10^3/uL (0.00-0.03); Immature Granulocytes Pct Auto 0.3 % (0.0-0.5); Lymphocytes Absolute Auto 0.9 10^3/uL (1.2-3.8); Mean Corpuscular HGB Conc 33.3 g/dL (29.9-35.2); Mean Corpuscular Hemoglobin 29.0 pg (26.7-34.0); Mean Corpuscular Volume 87.3 fL (81.0-99.0); Platelet Count 251 10^3/uL (150-450); Red Blood Count 5.65 10^6/uL (4.20-5.40); White Blood Count 13.6 10^3/uL (4.0-11.0)
[2025-04-07 18:53] LABS: Alanine Aminotransferase 67 U/L (14-59); Albumin Level 4.3 g/dL (3.4-5.0); Chloride 101 mmol/L (98-107); Potassium 3.8 mmol/L (3.5-5.1); Sodium 140 mmol/L (136-145)
[2025-04-07 19:03] LABS: Albumin Globulin Ratio 0.9; Alkaline Phosphatase 126 U/L (46-116); Anion Gap 17.1; Aspartate Amino Transferase 46 U/L (15-37); Blood Urea Nitrogen 7.0 mg/dL (7.0-18.0); Calcium 9.5 mg/dL (8.5-10.1); Carbon Dioxide 25.7 mmol/L (21.0-32.0); Estimated GFR (African America >60 (>=60 mL/min/1.73m^2); Estimated GFR (Non-African Ame >60 (>=60 mL/min/1.73m^2); Globulin 4.9 g/dL; Glucose 128 mg/dL (74-106); Total Protein 9.2 g/dL (6.4-8.2)
--- NOTE | 2025-04-07 19:22 | ED.ABDPAIN1 ---
HPI - Abdominal Pain General Chief Complaint: Abdominal Pain Stated Complaint: RIGHT SIDE PAIN Time Seen by Provider: 04/07/25 17:19 Source: patient Mode of arrival: walk-in History of Present Illness HPI narrative: 44-year-old female presents with chief complaint of right upper quadrant pain. She states she has a history of a stent in her gallbladder due to gallbladder issues several years ago. She is here with pain and nausea that began last night. She has not followed up with anyone in the area. States stent [place]. She is afebrile nontoxic-appearing Related Data Allergies Allergy/AdvReac Type Severity Reaction Status Date / Time No Known Drug Allergies Allergy Verified 09/23/23 22:34 Review of Systems ROS Status of ROS 10 or more systems reviewed and unremarkable except as noted in history and below PFSH PFSH Social History Little interest or pleasure in doing things: not at all Feeling down, depressed, or hopeless: not at all Exam Narrative Exam Narrative: All Systems are negative except as noted/marked.All systems reviewed and otherwise negative Nurses note and vital signs reviewed and patient is not hypoxic. General: The patient appears well and in no apparent distress. Patient is resting comfortably on cart. Skin: Warm, dry, no pallor noted. There is no rash noted. Head: Normocephalic, atraumatic Cardiovascular: Regular Rate and Rhythm Respiratory: Patient is in no distress, no accessory muscle use, lungs are clear to auscultation, no wheezing, rales or rhonchi Back: non-tender, no CVA tenderness bilaterally to percussion. GI: no right upper quadrant tenderness to pain, Normal bowel sounds, no tenderness to palpation, no masses appreciated. No rebound, guarding, or rigidity noted. Musculoskeletal: The patient has no evidence of calf tenderness, no pitting edema, symmetrical pulses noted bilaterally Neurological: A&O x4, normal speech Psychiatric: Cooperative Constitutional Vital Signs, click to edit/add: Last Vital Signs Temp 98.0 F 04/07/25 17:14 Pulse 115 H 04/07/25 17:14 Resp 20 04/07/25 17:14 BP 137/118 H 04/07/25 17:14 Pulse Ox 99 04/07/25 17:14 O2 Del Method Room Air 04/07/25 17:14 Course Vital Signs Vital signs: Vital Signs Temperature 98.0 F 04/07/25 17:14 Pulse Rate 115 H 04/07/25 17:14 Respiratory Rate 20 04/07/25 17:14 Blood Pressure 137/118 H 04/07/25 17:14 Pulse Oximetry 99 04/07/25 17:14 Oxygen Delivery Method Room Air 04/07/25 17:14 Temperature 98.0 F 04/07/25 17:14 Pulse Rate 115 H 04/07/25 17:14 Respiratory Rate 20 04/07/25 17:14 Blood Pressure 137/118 H 04/07/25 17:14 Pulse Oximetry 99 04/07/25 17:14 Oxygen Delivery Method Room Air 04/07/25 17:14 MDM - Abdominal Pain MDM Narrative Medical decision making narrative: 44-year-old female presents with chief complaint of right upper quadrant pain. She states she has a history of a stent in her gallbladder due to gallbladder issues several years ago. She is here with pain and nausea that began last night. She has not followed up with anyone in the area. States stent was placed by somebody [place] south prior to moving here. She is afebrile nontoxic-appearing Patient presented with chief complaint right upper quadrant pain. Liver enzymes mildly elevated but not significant. Patient states her pain is completely gone after Toradol. She was also medicated with Zofran. She states she feels much better at this time. She does wish to go home. She will be given a follow-up with her primary care physician as well as Dr. Kyle. I did advise her to follow-up with Dr. Vieyra when she feels better so that she has an established general surgeon in the future. Differential Diagnosis Differential diagnosis: Likely abdominal pain, constipation, gastroenteritis and other (cholelithiasis) Medical Records Attestation: I reviewed the patient's medical records. Lab Data Attestation: I reviewed the patient's lab results. Labs: Lab Results 04/07/25 Range/Units 17:38 WBC 13.6 H (4.0-11.0) 10^3/uL RBC 5.65 H (4.20-5.40) 10^6/uL Hgb 16.4 H (12.0-16.0) g/dL Hct 49.3 H (36.0-48.0) % MCV 87.3 (81.0-99.0) fL MCH 29.0 (26.7-34.0) pg MCHC 33.3 (29.9-35.2) g/dL RDW 14.3 (11.0-15.0) % Plt Count 251 (150-450) 10^3/uL MPV 10.1 (9.5-13.5) fL Neut % (Auto) 85.1 H (43.0-75.0) % Lymph % (Auto) 6.6 L (20.5-60.0) % [place] % (Auto) 7.4 (1.7-12.0) % Eos % (Auto) 0.4 L (0.9-7.0) % Baso % (Auto) 0.2 (0.2-2.0) % Neut # (Auto) 11.6 H (1.4-6.5) 10^3/uL Lymph # (Auto) 0.9 L (1.2-3.8) 10^3/uL [place] # (Auto) 1.0 H (0.3-0.8) 10^3/uL Eos # (Auto) 0.1 (0.0-0.7) 10^3/uL Baso # (Auto) 0.0 (0.0-0.1) 10^3/uL Abs Immat Gran (auto) 0.04 H (0.00-0.03) 10^3/uL Imm/Tot Granulo (auto) 0.3 (0.0-0.5) % Sodium 140 (136-145) mmol/L Potassium 3.8 (3.5-5.1) mmol/L Chloride 101 (98-107) mmol/L Carbon Dioxide 25.7 (21.0-32.0) mmol/L Anion Gap 17.1 BUN 7.0 (7.0-18.0) mg/dL Creatinine 0.65 (0.55-1.02) mg/dL Est GFR ( Amer) >60 (>=60 mL/min/1.73m^2) Est GFR (Non-Af Amer) >60 (>=60 mL/min/1.73m^2) BUN/Creatinine Ratio 10.8 Glucose 128 H (74-106) mg/dL Calcium 9.5 (8.5-10.1) mg/dL Total Bilirubin 1.0 (0.2-1.0) mg/dL AST 46 H (15-37) U/L ALT 67 H (14-59) U/L Alkaline Phosphatase 126 H (46-116) U/L Total Protein 9.2 H (6.4-8.2) g/dL Albumin 4.3 (3.4-5.0) g/dL Globulin 4.9 g/dL Albumin/Globulin Ratio 0.[address] scan - abdomen: Radiologist's impression: ITS Impressions Abdomen/Pelvis CT 04/07/25 17:20 IMPRESSION: CBD stent is in place. There is mild intrahepatic bile duct dilatation noted. Correlation with LFTs is suggested. No definite acute intra-abdominal process is seen. Impression dictated by: Erasmo Mendoza Jr.OSam 04/07/2025 6:10 PM Dictation Location: [place] [address] Electronically authenticated by: [id number] Y Date: 04/07/2025 18:10 Discharge Plan Discharge Chief Complaint: Abdominal Pain Clinical Impression: Biliary colic Patient Disposition: Home, Self-Care Time of Disposition Decision: 19:19 Condition: Good Print Language: Maltese Instructions: Biliary Colic (ED) Referrals: Shay Petit MD [Physician, General Surgery] - 1 week Physician,Non-Staff, [Primary Care Provider] - 1 week
--- NOTE | 2025-04-07 19:36 | PC.NURSE ---
Pt re-vitalized at discharge - BP elevated but patient states this is normal for her and she has not taken her BP meds in a few days becuse she forgot This nurse discussed the importance of medication compliance
[2025-04-07 19:42] VITALS: BP 176/100; PULSE 98; O2SAT 98
== END 2025-04-07 19:45 | disposition home or self-care (01) ==
PROVIDERS: Physician Assistant; Emergency Provider Emergency Medicine
DX: K80.50 Calculus of bile duct without cholangitis or cholecystitis without obstruction (principal)
CPT/HCPCS: 36415; 74177; 80053; 81001; 84703; 85025; 96374; 96375; 99285; J1885; J2405; Q9967